=== PATIENT | male | born 1960 | race Hispanic/Latino ===

== ENCOUNTER 2017-07-11 11:48 | Inpatient (IN) | payer MEDICARE ==
[2017-07-11 12:04] VITALS: BMI 29.2
--- NOTE | 2017-07-11 12:35 | C.PDOC ---
History Of Present Illness 56 y/o male presents to emergency department status post outpatient bilateral lower extremity ultrasound which showed (+) left lower extremity DVT. Patient was sent by Dr. Ryan Meyers for admission. Patient c/o bilateral lower extremity pain "for a while", noting right greater than left. Otherwise, denies fever, chills, dizziness, headache, chest pain, SOB, nausea, vomiting, new weakness or numbness, trauma, or other associated symptoms. Time Seen by Provider: 07/11/17 12:29 Chief Complaint (Nursing): Abnormal Skin Integrity History Per: Patient History/Exam Limitations: no limitations Onset/Duration Of Symptoms: Days Current Symptoms Are (Timing): Still Present Location Of Injury: Left: Leg Quality Of Symptoms: Painful Recent travel outside of the [place]: No Past Medical History Reviewed: Historical Data, Nursing Documentation, Vital Signs Vital Signs: Last Vital Signs Temp 98.4 F 07/11/17 17:28 Pulse 86 07/11/17 17:28 Resp 18 07/11/17 12:05 BP 102/66 07/11/17 17:28 Pulse Ox 96 07/11/17 17:28 - Medical History PMH: HTN Family History: States: Unknown Family Hx - Social History Hx Alcohol Use: Yes Hx Substance Use: No - Immunization History Hx Tetanus Toxoid Vaccination: No Hx Influenza Vaccination: No Hx Pneumococcal Vaccination: No Review Of Systems Except As Marked, All Systems Reviewed And Found Negative. Constitutional: Negative for: Fever, Chills Cardiovascular: Negative for: Chest Pain, Palpitations, Edema, Light Headedness Respiratory: Negative for: Cough, Shortness of Breath, Wheezing Gastrointestinal: Negative for: Nausea, Vomiting, Abdominal Pain Musculoskeletal: Positive for: Leg Pain Skin: Negative for: Rash Neurological: Negative for: Weakness, Numbness, Headache, Dizziness Physical Exam - Physical Exam Appears: Non-toxic, No Acute Distress Skin: Normal Color, Warm, Dry Head: Atraumatic, Normacephalic Oral Mucosa: Moist Chest: Symmetrical Cardiovascular: Rhythm Regular Respiratory: Normal Breath Sounds, No Accessory Muscle Use, No Rales, No Rhonchi , No Wheezing Gastrointestinal/Abdominal: Soft, No Tenderness, No Guarding, No Rebound Back: Normal Inspection Extremity: Normal ROM, No Pedal Edema, Calf Tenderness (bilateral, R > L), Capillary Refill (< 2 sec.) Extremity: Bilateral: Normal Color And Temperature Pulses: Left Dorsalis Pedis: Normal, Right Dorsalis Pedis: Normal Neurological/Psych: Oriented x3, Normal Speech, Normal Cognition, Normal Motor, Normal Sensation ED Course And Treatment - Laboratory Results Result Diagrams: 07/11/17 12:46 07/11/17 12:46 Lab Interpretation: No Acute Changes ECG: Interpreted By Me, Viewed By Me O2 Sat by Pulse Oximetry: 97 (RA) Pulse Ox Interpretation: Normal - Other Rad CXR X-Ray: Read By Radiologist Interpretation: MPRESSION: Biapical pleural thickening. Single lead left- sided AICD. - CT Scan/US Doppler US Other Rad Studies (CT/US): Radiology Report Reviewed CT/US Interpretation: (+) DVT of common femoral, posterial tibial and peroneal veins. Progress Note: Case discussed with Dr. Meyers in the ER. EKG, bloodwork, venous duplex scan ordered and reviewed. Disposition - Disposition Disposition: HOSPITALIZED Disposition Time: 14:09 Condition: STABLE - Clinical Impression Clinical Impression: DVT (deep venous thrombosis) - PA / [employer] / Resident Statement MD/DO has reviewed & agrees with the documentation as recorded. - Scribe Statement The provider has reviewed the documentation as recorded by the Rosalieibcesar Patel All medical record entries made by the Parish were at my direction and personally dictated by me. I have reviewed the chart and agree that the record accurately reflects my personal performance of the history, physical exam, medical decision making, and the department course for this patient. I have also personally directed, reviewed, and agree with the discharge instructions and disposition.
[2017-07-11 12:53] LABS: BASO # 0.1 K/uL (0.0-0.2); BASO % 1.3 % (0.0-2.0); EOS # 0.1 K/uL (0.0-0.7); EOS % 1.1 % (0.0-4.0); HEMATOCRIT 47.2 % (35.0-51.0); LYMPH # 1.9 K/uL (1.0-4.3); LYMPH % 20.5 % (20.0-40.0); MEAN CELL VOLUME 91.9 fL (80.0-94.0); MEAN CORPUSCULAR HEMOGLOBIN 32.3 pg (27.0-31.0); MEAN CORPUSCULAR HGB CONC 35.1 g/dL (33.0-37.0); MEAN PLATELET VOLUME 7.3 fL (7.2-11.7); MONO # 0.5 K/uL (0.0-0.8); MONO % 5.8 % (0.0-10.0); RED CELL DISTRIBUTION WIDTH 14.2 % (11.5-14.5)
[2017-07-11 13:02] LABS: CHLORIDE 97 mmol/L (98-107); SODIUM 139 mmol/L (132-148)
--- NOTE | 2017-07-11 13:02 | RAD ---
HISTORY: SOB COMPARISON: Chest x-ray performed 05/28/14 TECHNIQUE: Chest PA and lateral FINDINGS: LUNGS: Biapical pleural thickening. No focal consolidation. Please note that chest x-ray has limited sensitivity for the detection of pulmonary masses. PLEURA: No significant pleural effusion identified. No definite pneumothorax . CARDIOVASCULAR: Single lead left-sided AICD. Heart size appears top normal. OSSEOUS STRUCTURES: Degenerative changes. VISUALIZED UPPER ABDOMEN: Unremarkable. OTHER FINDINGS: None. IMPRESSION: Biapical pleural thickening. Single lead left-sided AICD.
[2017-07-11 13:04] LABS: AST/SGOT 34 U/L (17-59); BILIRUBIN,TOTAL 0.7 mg/dL (0.2-1.3); CARBON DIOXIDE 25 mmol/L (22-30); GFR AFRICAN-AMERICAN > 60; POTASSIUM 4.1 mmol/L (3.6-5.2)
[2017-07-11 13:05] LABS: ALB/GLOB RATIO 1.3 (1.0-2.1); ALKALINE PHOSPHATASE 64 U/L (38-126); ALT/SGPT 41 U/L (21-72); BLOOD UREA NITROGEN 16 mg/dL (9-20); GLUCOSE,RANDOM 118 mg/dL (75-110); TOTAL PROTEIN 7.6 g/dL (6.3-8.3)
[2017-07-11] MEDS ORDERED: Heparin25000 units/250ml 1/2NS 25,000 UNITS/250 ML BAG IV ONE (14:02)
[2017-07-11 15:37] LABS: RBC URINE < 1 /hpf (0-3); URINE BILIRUBIN NEGATIVE (NEGATIVE); URINE BLOOD NEGATIVE (NEGATIVE); URINE COLOR Yellow (YELLOW); URINE GLUCOSE (UA) NORMAL (Normal); URINE KETONE NEGATIVE (NEGATIVE); URINE LEUKOCYTE ESTERASE NEG Leu/uL (Negative); URINE PROTEIN NEGATIVE (NEGATIVE); URINE UROBILINOGEN NORMAL mg/dL (0.2-1.0); WBC URINE < 1 /hpf (0-5)
--- NOTE | 2017-07-11 21:13 | CP.PCM.HP ---
History of Present Illness - History of Present Illness History of Present Illness: This is a 56 y/o male with known history of Ischemic Cardiomyopathy, S/P stent to LAD in 2009 after an MS in 2009, S/P placement of AICD a few months ago who was advised to be admitted because of pain in the lower ext. 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 He went to see his orthopedist and he was advised to go for venous duplex scan which was done earlier today. The test turned out + for DVT on the L and hence he was sent to the ER and subsequently admitted. Patient denies any chest pain or shortness of breath, no palpitations or dizziness. Present on Admission - Present on Admission Any Indicators Present on Admission: No Review of Systems - Review of Systems All systems: reviewed and no additional remarkable complaints except - Constitutional Constitutional: Fatigue - EENT Eyes: As Per HPI Ears: As Per HPI Nose/Mouth/Throat: As Per HPI - Cardiovascular Cardiovascular: Chest Pain with Activity, Dyspnea on Exertion - Respiratory Respiratory: Dyspnea on Exertion - Gastrointestinal Gastrointestinal: As Per HPI - Musculoskeletal Musculoskeletal: Arthralgias, Muscle Cramps, Muscle Weakness, Myalgias - Psychiatric Psychiatric: As Per HPI Past Patient History - Past Social History Smoking Status: Current Some Days Smoker Home Situation {Lives}: With Family - CARDIAC Hx Cardiac Disorders: Yes Hx Angina: Yes Hx Cardia Arrhythmia: Yes Hx Circulatory Problems: Yes Hx Congestive Heart Failure: Yes Hx Heart Attack: Yes Hx Heart Murmur: Yes Hx Hypercholesterolemia: Yes Hx Hypertension: Yes Hx Internal Defibrillator: Yes Hx Peripheral Edema: Yes Hx Peripheral Vascular Disease: Yes - PULMONARY Hx Respiratory Disorders: Yes Hx Emphysema: Yes Hx Respiratory Tract Infection: Yes - NEUROLOGICAL Hx Neurological Disorder: No - HEENT Hx HEENT Problems: No - RENAL Hx Chronic Kidney Disease: No - HEMATOLOGICAL/ONCOLOGICAL Hx Blood Disorders: No - MUSCULOSKELETAL/RHEUMATOLOGICAL Hx Musculoskeletal Disorders: No - GASTROINTESTINAL Hx Gastrointestinal Disorders: No Hx Diverticulitis: No Hx Fatty Liver Disease: No - PSYCHIATRIC Hx Psychophysiologic Disorder: Yes Hx Bipolar Disorder: Yes Hx Substance Use: No Meds Allergies/Adverse Reactions: Allergies Allergy/AdvReac Type Severity Reaction Status Date / Time No Known Allergies Allergy Verified 07/11/17 12:02 Physical Exam - Constitutional Appears: No Acute Distress - Head Exam Head Exam: NORMAL INSPECTION - Eye Exam Eye Exam: Normal appearance - ENT Exam ENT Exam: Normal Exam - Neck Exam Neck exam: Positive for: Normal Inspection - Respiratory Exam Respiratory Exam: Clear to Auscultation Bilateral, NORMAL BREATHING PATTERN - Cardiovascular Exam Cardiovascular Exam: REGULAR RHYTHM, +S1, +S2 - GI/Abdominal Exam GI & Abdominal Exam: Normal Bowel Sounds, Soft - Rectal Exam Rectal Exam: Deferred - Extremities Exam Additional comments: calf muscle tenderness R>L, pedal pulses diminished bilaterally. - Neurological Exam Neurological exam: Alert, Oriented x3 - Skin Skin Exam: Dry, Intact, Normal Color, Warm Results - Vital Signs Recent Vital Signs: Last Vital Signs Temp 97.9 F 07/11/17 20:38 Pulse 60 07/11/17 20:38 Resp 18 07/11/17 20:38 BP 150/93 H 07/11/17 20:38 Pulse Ox 96 07/11/17 20:38 - Labs Result Diagrams: 07/11/17 12:46 07/12/17 03:18 Labs: Laboratory Results - last 24 hr 07/11/17 07/11/17 07/11/17 12:46 12:46 12:46 WBC 9.0 RBC 5.13 Hgb 16.6 Hct 47.2 MCV 91.9 MCH 32.3 H MCHC 35.1 RDW 14.2 Plt Count 246 MPV 7.3 Neut % (Auto) 71.3 Lymph % (Auto) 20.5 [place] % (Auto) 5.8 Eos % (Auto) 1.1 Baso % (Auto) 1.3 Neut # 6.5 Lymph # 1.9 [place] # 0.5 Eos # 0.1 Baso # 0.1 PT 11.5 INR 1.0 APTT 29 Sodium 139 Potassium 4.1 Chloride 97 L Carbon Dioxide 25 Anion Gap 22 H BUN 16 Creatinine 0.8 Est GFR ( Amer) > 60 Est GFR (Non-Af Amer) > 60 Random Glucose 118 H Calcium 9.0 Total Bilirubin 0.7 AST 34 ALT 41 Alkaline Phosphatase 64 Troponin I < 0.0120 Total Protein 7.6 Albumin 4.2 Globulin 3.3 Albumin/Globulin Ratio 1.3 Urine Color Urine Clarity Urine pH Ur Specific [place] Urine Protein Urine Glucose (UA) Urine Ketones Urine Blood Urine Nitrate Urine Bilirubin Urine Urobilinogen Ur Leukocyte Esterase Urine WBC (Auto) Urine RBC (Auto) Ur Squamous Epith Cells 07/11/17 15:17 WBC RBC Hgb Hct MCV MCH MCHC RDW Plt Count MPV Neut % (Auto) Lymph % (Auto) [place] % (Auto) Eos % (Auto) Baso % (Auto) Neut # Lymph # [place] # Eos # Baso # PT INR APTT Sodium Potassium Chloride Carbon Dioxide Anion Gap BUN Creatinine Est GFR ( Amer) Est GFR (Non-Af Amer) Random Glucose Calcium Total Bilirubin AST ALT Alkaline Phosphatase Troponin I Total Protein Albumin Globulin Albumin/Globulin Ratio Urine Color Yellow Urine Clarity Clear Urine pH 6.0 Ur Specific [place] 1.011 Urine Protein Negative Urine Glucose (UA) Normal Urine Ketones Negative Urine Blood Negative Urine Nitrate Negative Urine Bilirubin Negative Urine Urobilinogen Normal Ur Leukocyte Esterase Neg Urine WBC (Auto) < 1 Urine RBC (Auto) < 1 Ur Squamous Epith Cells < 1 Assessment & Plan (1) DVT (deep venous thrombosis) Status: Acute Priority: High Comment: + venous duplex scan of L lower extremity. Currently on heparin drip. To be shifted to oral anticoagulant once fully anticoagulated. (2) Ischemic cardiomyopathy Status: Chronic Priority: Medium Comment: Patient on beta barron and femi inhibitor. Also had AICD insertion a few months ago. Stable at this time. (3) History of bipolar disorder Status: Chronic Priority: Low Decision To Admit - Pt Status Changed To: Hospital Disposition Of: Inpatient - Admit Certification Admit to Inpatient:: After my assessment, the patient will require hospitalization for at least two midnights. This is because of the severity of symptoms shown, intensity of services needed, and/or the medical risk in this patient being treated as an outpatient. - InPatient: Physician Admission Certification:: After my assessment, the patient will require hospitalization for at least two midnights. This is because of the severity of symptoms shown, intensity of services needed, and/or the medical risk in this patient being treated as an outpatient. - . Bed Request Type: Regular Admitting Physician: Linn Harrison
[2017-07-12] MEDS ORDERED: Tramadol 25 mg PO ONE (00:29)
[2017-07-12 03:29] LABS: CHLORIDE 100 mmol/L (98-107)
[2017-07-12 03:30] LABS: POTASSIUM 4.1 mmol/L (3.6-5.2); SODIUM 139 mmol/L (132-148)
[2017-07-12 03:32] LABS: GFR AFRICAN-AMERICAN > 60
[2017-07-12 03:33] LABS: BLOOD UREA NITROGEN 16 mg/dL (9-20); CALCIUM 9.2 mg/dl (8.6-10.4); CARBON DIOXIDE 28 mmol/L (22-30); GLUCOSE,RANDOM 87 mg/dL (75-110)
[2017-07-12] MEDS ORDERED: Heparin25000 units/250ml 1/2NS 25,000 UNITS/250 ML BAG IV PRN ×5 (05:15→23:39)
[2017-07-12] MEDS: Metoprolol Succinate 50 mg XL Tab PO SCH (09:53)
[2017-07-12] MEDS ORDERED: Pneumococcal 23-Valent Vaccine SC ONE (10:00)
[2017-07-12] MEDS ORDERED: Influenza Vaccine 60 mcg/0.5 mL SYR (4YR UP) IM ONE (10:00)
--- NOTE | 2017-07-12 14:40 | VASCLAB ---
PROCEDURE: Left Lower Extremity Venous Duplex Exam. HISTORY: Left leg pain PRIORS: None. TECHNIQUE: Left common femoral, femoral, popliteal and posterior tibial, peroneal and great saphenous veins were evaluated. Flow was assessed with color Doppler, compressibility, assessment of phasic flow and augmentation response. Report prepared by JOHN PAUL Palacios, RVT FINDINGS: LEFT: 1. Common Femoral Vein: 1.1. Compressibility - Fully compressible: Thrombus - None : Flow - Phasic: Augmentation -Normal: Reflux - None. 2. Femoral Vein: 2.1. Compressibility - Partial: Thrombus - Chronic: Flow - Absent : Augmentation -None: Reflux - None. 3. Popliteal Vein: 3.1. Compressibility - Partial: Thrombus - Chronic: Flow - Reduced : Augmentation -None: Reflux - None. 4. Posterior Tibial Vein: 4.1. Compressibility - Fully compressible: Thrombus - None: Flow - Phasic: Augmentation -Normal: Reflux - None. 5. Peroneal Vein: 5.1. Compressibility - Fully compressible: Thrombus - None: Flow - Phasic: Augmentation -Normal: Reflux - None. 6. Great Saphenous Vein: 6.1. Compressibility - Fully compressible: Thrombus - None: Flow - Phasic: Augmentation - Normal: Reflux - None. OTHER FINDINGS: DAVID Bishop notified about the findings. 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 Normal venous flow noted in the right common femoral vein.
--- NOTE | 2017-07-12 16:35 | NM ---
COMPARISON: July 11, 2017. Two-view chest TECHNIQUE: 7.2 mCi technetium 99-m Xe-133 Gas. 3.2 mCI technetium 99-m MAA administered intravenously. FINDINGS: VENTILATION COMPONENT: Photon deficient area corresponds to the pacemaker battery pack overlying the left lung PERFUSION COMPONENT: Heterogeneous distribution of radionuclide. No geographic, segmental, lobar abnormalities apparent on the present examination. Incidental finding(s): Photon deficient area corresponds to the battery pack as part of the unipolar pacemaker IMPRESSION: Low probability ventilation perfusion scan for pulmonary embolism.
--- NOTE | 2017-07-12 16:47 | CP.PCM.PN ---
Subjective - Date & Time of Evaluation Date of Evaluation: 07/12/17 Time of Evaluation: 16:45 - Subjective Subjective: -patient complaining of pain over the R leg. -venous duplex scan report noted -V/Q perfusion scan- low probability of PE -Will continue heparin and shift to warfarin -continue rest of Rx Objective - Vital Signs/Intake and Output Vital Signs (last 24 hours): Temp Pulse Resp BP Pulse Ox 98.4 F 61 20 105/68 98 07/12/17 16:00 07/12/17 16:00 07/12/17 16:00 07/12/17 16:00 07/12/17 16:00 Intake and Output: 07/12/17 07/12/17 06:59 18:59 Intake Total 660.4 236.8 Balance 660.4 236.8 - Medications Medications: Current Medications Acetaminophen (Tylenol 325mg Tab) 650 mg PO TID PRN PRN Reason: Pain, moderate (4-7) Fluoxetine HCl (Prozac) [address] [facility] Heparin Sodium/Sodium Chloride (Heparin 44591 Units/250ml 1/2 Normal Saline) 25 ,000 units in 250 mls @ 14.696 mls/hr IV .Q17H1M PRN; Protocol; 15 UNITS/KG/HR PRN Reason: PROTOCOL Last Admin: 07/12/17 05:45 Dose: 15 units/kg/hr, 14.696 mls/hr Lisinopril (Zestril) 2.[address] [facility] Last Admin: 07/12/17 09:54 Dose: 2.5 mg Metoprolol Succinate (Toprol Xl) [address] [facility] Last Admin: 07/12/17 09:53 Dose: 50 mg Mirtazapine (Remeron) 7.[address] [facility] Oxycodone/Acetaminophen (Percocet 5/325 Mg Tab) 1 tab PO Q6H PRN PRN Reason: Pain, severe (8-10) Stop: 07/15/17 16:41 Quetiapine Fumarate (Seroquel) [address] [facility] Risperidone (Risperdal Tab) [address] [facility] Rosuvastatin Calcium (Crestor) [address] [facility] Last Admin: 07/11/17 22:01 Dose: 20 mg - Labs Labs: 07/11/17 12:46 07/12/17 03:18 PT 11.6 SECONDS (9.7-12.2) 07/12/17 11:45 INR 1.0 07/12/17 11:45 APTT 95 SECONDS (21-34) H D 07/12/17 11:45 - Constitutional Appears: No Acute Distress - Eye Exam Eye Exam: Normal appearance - ENT Exam ENT Exam: Normal Exam - Neck Exam Neck Exam: Full ROM - Respiratory Exam Respiratory Exam: Clear to Ausculation Bilateral, NORMAL BREATHING PATTERN - Cardiovascular Exam Cardiovascular Exam: REGULAR RHYTHM, RRR, +S1, +S2 - Extremities Exam Extremities Exam: Calf Tenderness - Neurological Exam Neurological Exam: Alert, Oriented x3 - Skin Skin Exam: Dry, Intact, Warm Assessment and Plan (1) DVT (deep venous thrombosis) Status: Acute (2) Ischemic cardiomyopathy Status: Chronic (3) History of bipolar disorder Status: Chronic
[2017-07-12] MEDS: Oxycodone/Acetaminophen 5/325 mg Tab PO PRN (18:09)
[2017-07-12] MEDS ORDERED: MIRTAZAPINE 7.5 MG PO SCH (22:00)
[2017-07-13] MEDS: Oxycodone/Acetaminophen 5/325 mg Tab PO PRN ×4 (00:22→22:37)
[2017-07-13 07:33] LABS: INR 1.1
[2017-07-13] MEDS: Metoprolol Succinate 50 mg XL Tab PO SCH (09:57)
--- NOTE | 2017-07-13 12:25 | CP.PCM.PN ---
Subjective - Date & Time of Evaluation Date of Evaluation: 07/13/17 Time of Evaluation: 12:20 - Subjective Subjective: -Patient awake, alert oriented -complains of on and off pain over the R leg -on heparin while warfarin dose is being stabilized under PT/PTT/INR monitoring Objective - Vital Signs/Intake and Output Vital Signs (last 24 hours): Temp Pulse Resp BP Pulse Ox 98.5 F 60 20 109/70 95 07/13/17 07:50 07/13/17 07:50 07/13/17 07:50 07/13/17 07:50 07/13/17 07:50 Intake and Output: 07/13/17 07/13/17 06:59 18:59 Intake Total 469.6 Balance 469.6 - Medications Medications: Current Medications Acetaminophen (Tylenol 325mg Tab) 650 mg PO TID PRN PRN Reason: Pain, moderate (4-7) Fluoxetine HCl (Prozac) 60 mg PO DAILY [facility] Last Admin: 07/13/17 09:57 Dose: 60 mg Heparin Sodium/Sodium Chloride (Heparin 34390 Units/250ml 1/2 Normal Saline) 25 ,000 units in 250 mls @ 13.717 mls/hr IV .[id number] PRN; Protocol; 14 UNITS/KG/HR PRN Reason: PROTOCOL Last Admin: 07/12/17 23:47 Dose: 14 units/kg/hr, 13.717 mls/hr Lisinopril (Zestril) 2.5 mg PO DAILY [facility] Last Admin: 07/13/17 09:58 Dose: 2.5 mg Metoprolol Succinate (Toprol Xl) 50 mg PO DAILY [facility] Last Admin: 07/13/17 09:57 Dose: 50 mg Mirtazapine (Remeron) 7.5 mg PO HS [facility] Last Admin: 07/12/17 22:44 Dose: 7.5 mg Oxycodone/Acetaminophen (Percocet 5/325 Mg Tab) 1 tab PO Q6H PRN PRN Reason: Pain, severe (8-10) Stop: 07/15/17 16:41 Last Admin: 07/13/17 10:02 Dose: 1 tab Quetiapine Fumarate (Seroquel) 25 mg PO Q24H [facility] Last Admin: 07/12/17 18:00 Dose: 25 mg Risperidone (Risperdal Tab) 1 mg PO HS [facility] Last Admin: 07/12/17 22:45 Dose: 1 mg Rosuvastatin Calcium (Crestor) 20 mg PO HS [facility] Last Admin: 07/12/17 22:45 Dose: 20 mg - Labs Labs: 07/11/17 12:46 07/12/17 03:18 PT 12.8 SECONDS (9.7-12.2) H 07/13/17 07:14 INR 1.1 07/13/17 07:14 APTT 99 SECONDS (21-34) H D 07/13/17 07:14 - Constitutional Appears: No Acute Distress - Head Exam Head Exam: NORMAL INSPECTION - Eye Exam Eye Exam: Normal appearance - ENT Exam ENT Exam: Mucous Membranes Moist, Normal Exam - Neck Exam Neck Exam: Full ROM - Respiratory Exam Respiratory Exam: Clear to Ausculation Bilateral, NORMAL BREATHING PATTERN - Cardiovascular Exam Cardiovascular Exam: REGULAR RHYTHM, RRR, +S1, +S2 - GI/Abdominal Exam GI & Abdominal Exam: Soft, Normal Bowel Sounds - Extremities Exam Extremities Exam: Full ROM, Normal Capillary Refill Additional comments: -pedal pulses felt bilaterally - - Back Exam Back Exam: paraspinal tenderness, tenderness - Neurological Exam Neurological Exam: Alert, Awake, Oriented x3 - Psychiatric Exam Psychiatric exam: Normal Affect - Skin Skin Exam: Normal Color, Warm Assessment and Plan (1) DVT (deep venous thrombosis) Status: Acute (2) Ischemic cardiomyopathy Status: Chronic (3) History of bipolar disorder Status: Chronic (4) Chronic radicular pain of lower back Status: Chronic
[2017-07-13 14:45] LABS: INR 1.3
[2017-07-13] MEDS ORDERED: Heparin25000 units/250ml 1/2NS 25,000 UNITS/250 ML BAG IV PRN (15:00)
--- NOTE | 2017-07-13 17:37 | CT ---
PROCEDURE: CT Lumbar Spine without contrast HISTORY: lumbar radiculopathy COMPARISON: None. TECHNIQUE: Axial computed tomography images were obtained of the lumbar spine without the use of intravenous contrast. Coronal and sagittal reformatted images were created and reviewed. Radiation dose: Total exam DLP = 1481.22 mGy-cm. This CT exam was performed using one or more of the following dose reduction techniques: Automated exposure control, adjustment of the mA and/or kV according to patient size, and/or use of iterative reconstruction technique. FINDINGS: VERTEBRAE: There is mild straightening of the upper lumbar curvature with no spondylolisthesis or fracture appreciable definitively. Advanced multilevel degenerative disease appreciated seen worst at L2-3 and L5-S1 where there are vacuum disc changes accompanying disc height loss. Diffuse moderate multilevel spondylosis is appreciate throughout the lumbar spine. DISCS/SPINAL CANAL/NEURAL FORAMINA: L1-2: Unremarkable. L2-3: A disc osteophyte appears moderate but generalized and facet joint arthropathy appears mild with mild narrowing of the of lateral recesses appreciated although the generalized central canal remains widely patent. No significant neural foraminal stenosis. L3-4: A generalized disc osteophyte complex is appreciated combining with facet arthropathy to cause mild central canal stenosis concentrated at the lateral recesses. Mild bilateral neural foraminal stenosis appreciated as well. L4-5: A moderate central canal stenosis degenerative due to to disc bulging and moderate to severe facet arthropathy. Moderate bilateral neural foraminal stenosis identified symmetrically. L5-S1: Facet arthropathy and limited disc osteophyte complex result in asymmetric moderate to severe left and moderate right neural foraminal stenosis with no central canal stenosis evident. No gross disc herniation is appreciable throughout the exam however MRI is more sensitive. PARASPINAL SOFT TISSUES: Prevertebral paraspinal soft tissues appear diffusely unremarkable although bilateral intrarenal calculi are incidentally noted which appear nonobstructive as captured. Trace gas or submucosal fat is seen in the nondependent urinary bladder wall oral abutting the mucosa and may reflect reflect acute or chronic cystitis. Clinically correlate. OTHER FINDINGS: None. IMPRESSION: Degenerative central canal stenoses are mild at L3-4 and moderate L4-5 with multilevel variable neural foraminal stenoses seen at the mid to inferior lumbar spine. No gross disc herniation. MRI is more sensitive for disc evaluation can be performed if clinically warranted.
[2017-07-13 22:27] LABS: INR 1.5
[2017-07-14 08:10] LABS: INR 1.9
[2017-07-14] MEDS: Metoprolol Succinate 50 mg XL Tab PO SCH (10:09)
[2017-07-14] MEDS: Oxycodone/Acetaminophen 5/325 mg Tab PO PRN ×2 (11:17→17:20)
--- NOTE | 2017-07-14 17:04 | CP.PCM.PN ---
Subjective - Date & Time of Evaluation Date of Evaluation: 07/14/17 Time of Evaluation: 16:55 - Subjective Subjective: -Patient lying down on bed -complains of pain on the R leg -no calf tenderness on the L leg -PT/PTT/INR noted- therapeutic PTT, near therapeutic INR -Will give lower Warfarin dose today and check PT/INR in am. -For possible discharge tomorrow. Objective - Vital Signs/Intake and Output Vital Signs (last 24 hours): Temp Pulse Resp BP Pulse Ox 98.1 F 52 L 20 96/59 L 95 07/14/17 16:00 07/14/17 16:00 07/14/17 16:00 07/14/17 16:00 07/14/17 16:00 Intake and Output: 07/14/17 07/14/17 06:59 18:59 Intake Total 726.0 444 Balance 726.0 444 - Medications Medications: Current Medications Acetaminophen (Tylenol 325mg Tab) 650 mg PO TID PRN PRN Reason: Pain, moderate (4-7) Fluoxetine HCl (Prozac) 60 mg PO DAILY [facility] Last Admin: 07/14/17 10:09 Dose: 60 mg Lisinopril (Zestril) 2.5 mg PO DAILY [facility] Last Admin: 07/14/17 10:10 Dose: 2.5 mg Metoprolol Succinate (Toprol Xl) 50 mg PO DAILY [facility] Last Admin: 07/14/17 10:09 Dose: 50 mg Mirtazapine (Remeron) 7.5 mg PO [facility] Last Admin: 07/13/17 22:36 Dose: 7.5 mg Oxycodone/Acetaminophen (Percocet 5/325 Mg Tab) 1 tab PO Q6H PRN PRN Reason: Pain, severe (8-10) Stop: 07/15/17 16:41 Last Admin: 07/14/17 11:17 Dose: 1 tab Quetiapine Fumarate (Seroquel) 25 mg PO Q24H [facility] Last Admin: 07/13/17 17:25 Dose: 25 mg Risperidone (Risperdal Tab) 1 mg PO [facility] Last Admin: 07/13/17 22:37 Dose: 1 mg Rosuvastatin Calcium (Crestor) 20 mg PO [facility] Last Admin: 07/13/17 22:36 Dose: 20 mg Warfarin Sodium (Coumadin) 4 mg PO 1800 [place] Stop: 07/14/17 18:01 - Labs Labs: 07/11/17 12:46 07/12/17 03:18 PT 22.1 SECONDS (9.7-12.2) H D 07/14/17 07:56 INR 1.9 07/14/17 07:56 APTT 69 SECONDS (21-34) H D 07/14/17 07:56 - Constitutional Appears: No Acute Distress - Eye Exam Eye Exam: Normal appearance - Neck Exam Neck Exam: Normal Inspection - Respiratory Exam Respiratory Exam: Clear to Ausculation Bilateral, NORMAL BREATHING PATTERN - Cardiovascular Exam Cardiovascular Exam: REGULAR RHYTHM, +S1, +S2 - GI/Abdominal Exam GI & Abdominal Exam: Soft, Normal Bowel Sounds - Extremities Exam Extremities Exam: Normal Inspection - Skin Skin Exam: Normal Color, Warm Assessment and Plan (1) DVT (deep venous thrombosis) Status: Acute (2) Ischemic cardiomyopathy Status: Chronic (3) History of bipolar disorder Status: Chronic
[2017-07-15 06:42] LABS: INR 2.2
[2017-07-15 08:15] VITALS: BP 105/69; PULSE 60; RESP 21; TEMP 98.5; O2SAT 95
--- NOTE | 2017-07-15 10:00 | CP.PCM.DIS ---
Provider - Provider Date of Admission: 07/11/17 14:09 Attending physician: Linn Harrison MD Primary care physician: Olivia Harrison Time Spent in preparation of Discharge (in minutes): 30 Diagnosis - Discharge Diagnosis (1) DVT (deep venous thrombosis) Status: Chronic Priority: Medium Comment: Will keep on 2 mg Warfarin and monitor PT/INR outpatient. Repeat PT/ INR in 3 days and office follow up in 1 week set (2) Ischemic cardiomyopathy Status: Chronic Priority: Medium Comment: Cardiac status stable at this time. Continue current meds. (3) History of bipolar disorder Status: Chronic Priority: Low Comment: Psychiatry follow up advised. (4) Chronic radicular pain of lower back Status: Chronic Priority: Medium Comment: Patient has been on Percocet intermittently in the past. Precaution advised and patient aware of addictive potential. controls and administers the medication. Patient also follows up with orthopedist for this chronic pain. Advised to follow up with hi on discharge. Hospital Course - Lab Results Lab Results: Most Recent Lab Values WBC 9.0 K/uL (4.8-10.8) 07/11/17 12:46 RBC 5.13 Mil/uL (4.40-5.90) 07/11/17 12:46 Hgb 16.6 g/dL (12.0-18.0) 07/11/17 12:46 Hct 47.2 % (35.0-51.0) 07/11/17 12:46 MCV 91.9 fL (80.0-94.0) 07/11/17 12:46 MCH 32.3 pg (27.0-31.0) H 07/11/17 12:46 MCHC 35.1 g/dL (33.0-37.0) 07/11/17 12:46 RDW 14.2 % (11.5-14.5) 07/11/17 12:46 Plt Count 246 K/uL (130-400) 07/11/17 12:46 MPV 7.3 fL (7.2-11.7) 07/11/17 12:46 Neut % (Auto) 71.3 % (50.0-75.0) 07/11/17 12:46 Lymph % (Auto) 20.5 % (20.0-40.0) 07/11/17 12:46 [place] % (Auto) 5.8 % (0.0-10.0) 07/11/17 12:46 Eos % (Auto) 1.1 % (0.0-4.0) 07/11/17 12:46 Baso % (Auto) 1.3 % (0.0-2.0) 07/11/17 12:46 Neut # 6.5 K/uL (1.8-7.0) 07/11/17 12:46 Lymph # 1.9 K/uL (1.0-4.3) 07/11/17 12:46 [place] # 0.5 K/uL (0.0-0.8) 07/11/17 12:46 Eos # 0.1 K/uL (0.0-0.7) 07/11/17 12:46 Baso # 0.1 K/uL (0.0-0.2) 07/11/17 12:46 PT 25.8 SECONDS (9.7-12.2) H 07/15/17 06:23 INR 2.2 07/15/17 06:23 APTT 37 SECONDS (21-34) H D 07/15/17 06:23 D-Dimer, Quantitative 534 ng/mlDDU (0-243) H 07/12/17 11:45 Sodium 139 mmol/L (132-148) 07/12/17 03:18 Potassium 4.1 mmol/L (3.6-5.2) 07/12/17 03:18 Chloride 100 mmol/L (98-107) 07/12/17 03:18 Carbon Dioxide 28 mmol/L (22-30) 07/12/17 03:18 Anion Gap 16 (10-20) 07/12/17 03:18 BUN 16 mg/dL (9-20) 07/12/17 03:18 Creatinine 0.9 mg/dL (0.8-1.5) 07/12/17 03:18 Est GFR ( Amer) > 60 07/12/17 03:18 Est GFR (Non-Af Amer) > 60 07/12/17 03:18 Random Glucose 87 mg/dL (75-110) 07/12/17 03:18 Calcium 9.2 mg/dl (8.6-10.4) 07/12/17 03:18 Total Bilirubin 0.7 mg/dL (0.2-1.3) 07/11/17 12:46 AST 34 U/L (17-59) 07/11/17 12:46 ALT 41 U/L (21-72) 07/11/17 12:46 Alkaline Phosphatase 64 U/L (38-126) 07/11/17 12:46 Troponin I < 0.0120 ng/mL (0.00-0.120) 07/11/17 12:46 NT-Pro-B Natriuret Pep 284 pg/mL (0-900) 07/12/17 11:45 Total Protein 7.6 g/dL (6.3-8.3) 07/11/17 12:46 Albumin 4.2 g/dL (3.5-5.0) 07/11/17 12:46 Globulin 3.3 gm/dL (2.2-3.9) 07/11/17 12:46 Albumin/Globulin Ratio 1.3 (1.0-2.1) 07/11/17 12:46 Urine Color Yellow (YELLOW) 07/11/17 15:17 Urine Clarity Clear (Clear) 07/11/17 15:17 Urine pH 6.0 (5.0-8.0) 07/11/17 15:17 Ur Specific [place] 1.011 (1.003-1.030) 07/11/17 15:17 Urine Protein Negative mg/dL (NEGATIVE) 07/11/17 15:17 Urine Glucose (UA) Normal mg/dL (Normal) 07/11/17 15:17 Urine Ketones Negative mg/dL (NEGATIVE) 07/11/17 15:17 Urine Blood Negative (NEGATIVE) 07/11/17 15:17 Urine Nitrate Negative (NEGATIVE) 07/11/17 15:17 Urine Bilirubin Negative (NEGATIVE) 07/11/17 15:17 Urine Urobilinogen Normal mg/dL (0.2-1.0) 07/11/17 15:17 Ur Leukocyte Esterase Neg [place]/uL (Negative) 07/11/17 15:17 Urine WBC (Auto) < 1 /hpf (0-5) 07/11/17 15:17 Urine RBC (Auto) < 1 /hpf (0-3) 07/11/17 15:17 Ur Squamous Epith Cells < 1 /hpf (0-5) 07/11/17 15:17 Discharge Exam - Head Exam Head Exam: NORMAL INSPECTION Discharge Plan - Follow Up Plan Condition: STABLE Disposition: HOME/ ROUTINE
[2017-07-15] MEDS: Metoprolol Succinate 50 mg XL Tab PO SCH (10:03)
--- NOTE | 2017-07-16 06:39 | CARD ---
APPROVED REPORT EKG Measurement Heart [id number] IL [id number] <Conclusion> Sinus bradycardia Otherwise normal ECG
== END 2017-07-15 13:05 | disposition home or self-care (01) | DRG 301 ==
LOC: C.ER 11:48 → C.9E 14:09 → C.3T 20:12
PROVIDERS: ADMIT Internal Medicine Cardiovascular Disease; ATTEND Internal Medicine Cardiovascular Disease
DX: I82.512 Chronic embolism and thrombosis of left femoral vein (principal); I11.0 Hypertensive heart disease with heart failure; I50.9 Heart failure, unspecified; I82.532 Chronic embolism and thrombosis of left popliteal vein; G89.29 Other chronic pain; I25.5 Ischemic cardiomyopathy; I73.9 Peripheral vascular disease, unspecified; J43.9 Emphysema, unspecified; I25.10 Atherosclerotic heart disease of native coronary artery without angina pectoris; M54.16 Radiculopathy, lumbar region; F31.9 Bipolar disorder, unspecified; E78.00 Pure hypercholesterolemia, unspecified; F17.210 Nicotine dependence, cigarettes, uncomplicated; I25.2 Old myocardial infarction; Z95.810 Presence of automatic (implantable) cardiac defibrillator; Z95.5 Presence of coronary angioplasty implant and graft

== ENCOUNTER 2017-09-18 09:15 | Inpatient (IN) | payer MEDICARE ==
[2017-09-18 09:15] VITALS: BMI 29.2
--- NOTE | 2017-09-18 09:30 | C.PDOC ---
History Of Present Illness history of CAD, ischemic cardiomyopathy S/P AICD, DVT Time Seen by Provider: 09/18/17 09:29 Chief Complaint (Nursing): Male Genitourinary Past Medical History - Medical History PMH: Bipolar Disorder, Cardia Arrhythmia, CHF, Emphysema, HTN, Hypercholesterolemia, Peripheral Edema Denies: Diverticulitis, Chronic Kidney Disease Family History: States: Unknown Family Hx - Social History Hx Alcohol Use: Yes Hx Substance Use: No - Immunization History Hx Tetanus Toxoid Vaccination: No Hx Influenza Vaccination: No Hx Pneumococcal Vaccination: No Progress - Data Reviewed Data Reviewed: Old records Disposition - Disposition Forms: [employer] (Hungarian)
[2017-09-18] MEDS ORDERED: Iohexol 240 (50 ml) PO STA (09:47)
[2017-09-18] MEDS ORDERED: Lactated Ringer's 1,000 ML IV STA (09:47)
--- NOTE | 2017-09-18 09:47 | C.PDOC ---
History Of Present Illness 56 year old male with a PMHx of CAD, Ischemic Cardiomyopathy, status post AICD DVT presents to the ED with complaints of new onset RLQ abdominal pain beginning this morning with associated nausea and vomiting. Patient describes pain as constant, localized, and sharp. Patient notes fecal and urinary urgency but has no output. Patient is on Eliquis, last dose was yesterday. Patient has been NPO since last night. Patient denies PSHx, fever, chills, or other associated symptoms. NEW ONSET RLQ PAIN SINCE THIS MORNING. CONSTANT LOCALIZED SHARP. +FECAL AND URINARY URGENCY BUT NO OUTPUT. +NV. PSH NEG. history of CAD, ischemic cardiomyopathy S/P AICD dvt. ON ELIQUIS LAST DOSE YESTERDAY. NPO SINCE LAST NIGHT EXAM MOD DIST NONTOXIC HEENT ANICTERIC MMM ABD +RLQ TEND MOD SOFT NO R/G NO CVAT REMAINDER NEG Time Seen by Provider: 09/18/17 09:29 Chief Complaint (Nursing): Male Genitourinary History Per: Patient History/Exam Limitations: no limitations Onset/Duration Of Symptoms: Hrs Current Symptoms Are (Timing): Still Present Location Of Pain/Discomfort: RUQ Radiation Of Pain To:: None Quality Of Discomfort: Sharp Associated Symptoms: Nausea, Vomiting. denies: Fever, Chills Exacerbating Factors: None Alleviating Factors: None Recent travel outside of the [place]: No Additional History Per: Prior Records Past Medical History Reviewed: Historical Data, Nursing Documentation, Vital Signs Vital Signs: Last Vital Signs Temp 97.5 F L 09/18/17 09:34 Pulse 60 09/18/17 14:03 Resp 17 09/18/17 14:03 BP 106/80 09/18/17 14:03 Pulse Ox 97 09/18/17 14:28 - Medical History PMH: Bipolar Disorder, Cardia Arrhythmia, CHF, Deep Vein Thrombosis (left leg), Emphysema, HTN, Hypercholesterolemia, Peripheral Edema Family History: States: Unknown Family Hx - Social History Hx Alcohol Use: Yes Hx Substance Use: No - Immunization History Hx Tetanus Toxoid Vaccination: Yes Hx Influenza Vaccination: Yes Hx Pneumococcal Vaccination: Yes Review Of Systems Constitutional: Negative for: Fever, Chills Cardiovascular: Negative for: Chest Pain Respiratory: Negative for: Shortness of Breath Gastrointestinal: Positive for: Nausea, Vomiting, Abdominal Pain Genitourinary: Positive for: Other (fecal and urinary urgency) Physical Exam - Physical Exam Appears: Non-toxic, In Acute Distress (patient appears to be in moderate distress) Skin: Warm, Dry, No Rash Head: Atraumatic, Normacephalic, No Tenderness Eye(s): bilateral: PERRL, EOMI, Other (anicteric) Oral Mucosa: Moist Neck: Supple Chest: Symmetrical, No Deformity Cardiovascular: Rhythm Regular, No Murmur Respiratory: No Rales, No Rhonchi, No Wheezing, Other (clear to auscultation bilaterally) Gastrointestinal/Abdominal: Soft, Tenderness (moderate RLQ tenderness ), No Distention, No Guarding, No Rebound Back: No CVA Tenderness Extremity: Normal ROM, No Tenderness Neurological/Psych: Oriented x3 ED Course And Treatment - Laboratory Results Result Diagrams: 09/18/17 09:57 09/18/17 09:57 O2 Sat by Pulse Oximetry: 97 (RA) Pulse Ox Interpretation: Normal Progress Note: Abdomen Pelvis CT, labs, and blood work were ordered. Patient was given Morphine, Zofran, and Lactated Ringer's Solution. Progress - Re-Evaluation Re-evaluation Note: 09/18/17 12:41 PERSIST HTN, PS HASNT TAKEN BP MEDS THIS MORNING CO RECUR PAIN. PENDING CT, UA 09/18/17 14:27 appears comfortable nad vss. D/W DR SCHILLING AWARE OF ER AND CT FINDINGS. REQUESTS DR ESCOBEDO CONSULT, DISPO PER VASCULAR 09/18/17 14:54 VSS NAD APPEARS COMFORTABLE. D/W DR ESCOBEDO WILL CONSULT. RECOMMENDS FURTHER EVAL OF DISSECTION. D/W PMD WILL ADMIT - Data Reviewed Data Reviewed: Lab, Diagnostic imaging, EKG, Old records Disposition Counseled Patient/Family Regarding: Studies Performed, Diagnosis, Need For Followup - Disposition Disposition: HOSPITALIZED Disposition Time: 14:54 Condition: STABLE Forms: [facility] (Kazakh) - POA Present On Arrival: Poor Glycemic Control - Clinical Impression Clinical Impression: Ureterolithiasis, Dissection of aorta, abdominal - Scribe Statement The provider has reviewed the documentation as recorded by the Scribe Kaity Zhang All medical record entries made by the Scribe were at my direction and personally dictated by me. I have reviewed the chart and agree that the record accurately reflects my personal performance of the history, physical exam, medical decision making, and the department course for this patient. I have also personally directed, reviewed, and agree with the discharge instructions and disposition. Decision To Admit - Pt Status Changed To: Hospital Disposition Of: Inpatient - Admit Certification Admit to Inpatient:: After my assessment, the patient will require hospitalization for at least two midnights. This is because of the severity of symptoms shown, intensity of services needed, and/or the medical risk in this patient being treated as an outpatient. - InPatient: Physician Admission Certification:: SEE NOTE - . Bed Request Type: Telemetry Admitting Physician: Linn Harrison Patient Diagnosis: Ureterolithiasis, Dissection of aorta, abdominal
[2017-09-18] MEDS ORDERED: Lactated Ringer's 1,000 ML ONE (10:02)
[2017-09-18] MEDS ORDERED: Iohexol 240 (50 ml) ONE (10:02)
[2017-09-18] MEDS ORDERED: Morphine 4 MG/ML VIAL ONE (10:02)
[2017-09-18 10:04] LABS: BASO # 0.1 K/uL (0.0-0.2); BASO % 0.5 % (0.0-2.0); EOS % 0.3 % (0.0-4.0); LYMPH # 1.4 K/uL (1.0-4.3); LYMPH % 10.1 % (20.0-40.0); MEAN CORPUSCULAR HEMOGLOBIN 31.3 pg (27.0-31.0); MEAN PLATELET VOLUME 6.8 fL (7.2-11.7); MONO # 0.7 K/uL (0.0-0.8); MONO % 5.2 % (0.0-10.0); NEUT # 11.4 K/uL (1.8-7.0); NEUT % 83.9 % (50.0-75.0); NRBC % 0.1 % (0.0-2.0); RBC 5.43 Mil/uL (4.40-5.90); RED CELL DISTRIBUTION WIDTH 14.4 % (11.5-14.5)
[2017-09-18 10:06] LABS: WHITE BLOOD COUNT 13.6 K/uL (4.8-10.8)
[2017-09-18 10:15] LABS: ALB/GLOB RATIO 1.4 (1.0-2.1); ALBUMIN 4.1 g/dL (3.5-5.0); ALT/SGPT 46 U/L (21-72); AST/SGOT 30 U/L (17-59); BLOOD UREA NITROGEN 27 mg/dL (9-20); CALCIUM 8.6 mg/dl (8.6-10.4); GFR AFRICAN-AMERICAN > 60; GFR NON-AFRICAN AMERICAN > 60; LIPASE 62 U/L (23-300)
[2017-09-18] MEDS ORDERED: Metoprolol 1 mg/ml Inj IVP ONE ×2 (12:24→12:29)
[2017-09-18] MEDS ORDERED: HYDROmorphone 0.5 mg/0.5 ml ISec IVP STA (12:40)
[2017-09-18] MEDS ORDERED: HYDROmorphone 0.5 mg/0.5 ml ISec ONE (12:44)
[2017-09-18 12:47] LABS: SQUAMOUS EPITHIAL 1 /hpf (0-5); URINE BILIRUBIN NEGATIVE (NEGATIVE); URINE BLOOD 3+ (NEGATIVE); URINE CALCIUM OXALATE CRYSTALS OCC /hpf (<OCC); URINE CLARITY Hazy (Clear); URINE COLOR Yellow (YELLOW); URINE GLUCOSE (UA) NORMAL (Normal); URINE LEUKOCYTE ESTERASE NEG Leu/uL (Negative); URINE NITRATE NEGATIVE (NEGATIVE); URINE PROTEIN 1+ mg/dL (NEGATIVE)
[2017-09-18] MEDS ORDERED: Iodixanol 320 MG/ML 100 ML BOTTLE IV ONE (13:15)
--- NOTE | 2017-09-18 14:17 | CT ---
PROCEDURE: CT Abdomen and Pelvis with and without intravenous contrast HISTORY: RLQ PAIN RO APPY VS RENAL STONE COMPARISON: None available TECHNIQUE: Axial images of the abdomen were obtained in the pre contrast, portal venous and delayed phases of enhancement. Coronal and sagittal reformats were generated and reviewed. Contrast dose: 100 mL Visipaque Radiation dose: Total exam DLP = 1897.32 mGy-cm. This CT exam was performed using one or more of the following dose reduction techniques: Automated exposure control, adjustment of the mA and/or kV according to patient size, and/or use of iterative reconstruction technique. FINDINGS: LOWER THORAX: No visible consolidation, pleural effusion, or pneumothorax. LIVER: Unremarkable. GALLBLADDER AND BILE DUCTS: Unremarkable. PANCREAS: Unremarkable. SPLEEN: Unremarkable. ADRENALS: Unremarkable. KIDNEYS AND URETERS: The kidneys enhance symmetrically. Right-sided hydronephrosis with multiple bilateral punctate renal calculi. Obstructing proximal right ureteral calculus measures approximately 8 mm. Perinephric stranding on the right. VASCULATURE: Appearance of the aorta as suggest infrarenal chronic dissection with extensive thrombus. No false lumen identified. No evidence of ulcerating plaque. Extensive thrombus extends into the proximal right common iliac artery. BOWEL: Stomach is nondistended. Lack of oral contrast limits evaluation for bowel pathology. Bowel loops appear within normal limits of caliber without evidence of obstruction. Moderate constipation. APPENDIX: The appendix appears within normal limits of caliber. No secondary signs of acute appendicitis. PERITONEUM: No significant free fluid. No definite free air. LYMPH NODES: No bulky adenopathy identified. BLADDER: Decompressed urinary bladder limits evaluation. REPRODUCTIVE: Unremarkable. BONES: Degenerative changes. OTHER FINDINGS: None. IMPRESSION: Right-sided perinephric stranding with mild hydronephrosis and obstructing proximal ureteral calculus. Additional nonobstructing bilateral renal calculi evident. Appearance of the aorta suggests infrarenal chronic dissection with extensive thrombus. No false lumen identified. No evidence of ulcerating plaque. Extensive thrombus extends into the proximal right common iliac artery. Moderate constipation. Additional findings as above.
[2017-09-18] MEDS: Dextrose 5%/0.45% NS 1,000 ML IV SCH (19:42)
--- NOTE | 2017-09-18 19:43 | CP.PCM.HP ---
History of Present Illness - History of Present Illness History of Present Illness: This is a 56y/o male with history of Ischemic Cardiomyopathy, CHF, S/P coronary stenting, S/P AICD, Bipolar Disorder and history of recent DVT who was brought to the ER because of severe right sided-abdominal pain going down to his R leg early this morning. Patient claims that he has been having back pain on and off for a few months now. He also claims that he has some urinary urgency but no dysuria or frequency. He also describes passing dark-colored urine over the past few days. In the ER, he was found to have hydronephrosis of the R kidney with multiple stones and chronic infrarenal aortic dissection hence he was admitted for further evaluation and management Present on Admission - Present on Admission Any Indicators Present on Admission: No Past Patient History - Past Medical History & Family History Past Medical History?: Yes - Past Social History Smoking Status: Heavy Smoker > 10 Cigarettes Daily - CARDIAC Hx Cardiac Disorders: Yes Hx Cardia Arrhythmia: Yes Hx Congestive Heart Failure: Yes Hx Heart Attack: Yes Hx Hypercholesterolemia: Yes Hx Hypertension: Yes Hx Internal Defibrillator: Yes Hx Peripheral Edema: Yes - PULMONARY Hx Emphysema: Yes - NEUROLOGICAL Hx Neurological Disorder: No - HEENT Hx HEENT Problems: No - RENAL Hx Chronic Kidney Disease: No - ENDOCRINE/METABOLIC Hx Endocrine Disorders: No - HEMATOLOGICAL/ONCOLOGICAL Hx Blood Disorders: No - MUSCULOSKELETAL/RHEUMATOLOGICAL Hx Musculoskeletal Disorders: No - GASTROINTESTINAL Hx Diverticulitis: No - PSYCHIATRIC Hx Bipolar Disorder: Yes Hx Substance Use: No - SURGICAL HISTORY Hx Surgeries: Yes Hx Cardiac Catheterization: Yes (Stent placed) Hx Coronary Stent: Yes Other/Comment: AICD placement. - ANESTHESIA Hx Anesthesia: Yes Hx Anesthesia Reactions: No Meds Allergies/Adverse Reactions: Allergies Allergy/AdvReac Type Severity Reaction Status Date / Time No Known Allergies Allergy Verified 07/11/17 12:02 Physical Exam - Constitutional Appears: No Acute Distress - Head Exam Head Exam: NORMAL INSPECTION - Eye Exam Eye Exam: Normal appearance - ENT Exam ENT Exam: Mucous Membranes Moist, Normal Exam - Respiratory Exam Respiratory Exam: Clear to Auscultation Bilateral, NORMAL BREATHING PATTERN - Cardiovascular Exam Cardiovascular Exam: REGULAR RHYTHM, RRR, +S1, +S2 - GI/Abdominal Exam GI & Abdominal Exam: Diminished Bowel Sounds, Normal Bowel Sounds, Soft - Extremities Exam Extremities exam: Positive for: normal inspection - Neurological Exam Neurological exam: Alert, Oriented x3 - Psychiatric Exam Psychiatric exam: Normal Affect, Normal Mood - Skin Skin Exam: Intact Results - Vital Signs Recent Vital Signs: Last Vital Signs Temp 97.5 F L 09/18/17 09:34 Pulse 82 09/18/17 18:40 Resp 19 09/18/17 18:40 BP 120/85 09/18/17 18:40 Pulse Ox 95 09/18/17 18:40 - Labs Result Diagrams: 09/19/17 07:41 09/19/17 07:41 Labs: Laboratory Results - last 24 hr 09/18/17 09/18/17 09/18/17 09:57 09:57 12:39 WBC 13.6 H D RBC 5.43 Hgb 17.0 Hct 50.0 MCV 92.0 MCH 31.3 H MCHC 34.0 RDW 14.4 Plt Count 205 MPV 6.8 L Neut % (Auto) 83.9 H Lymph % (Auto) 10.1 L [place] % (Auto) 5.2 Eos % (Auto) 0.3 Baso % (Auto) 0.5 Neut # 11.4 H Lymph # 1.4 [place] # 0.7 Eos # 0.0 Baso # 0.1 Sodium 137 Potassium 4.3 Chloride 100 Carbon Dioxide 29 Anion Gap 13 BUN 27 H Creatinine 1.1 Est GFR ( Amer) > 60 Est GFR (Non-Af Amer) > 60 Random Glucose 149 H Calcium 8.6 Total Bilirubin 0.7 AST 30 ALT 46 Alkaline Phosphatase 93 Total Protein 6.9 Albumin 4.1 Globulin 2.9 Albumin/Globulin Ratio 1.4 Lipase 62 Urine Color Yellow Urine Clarity Hazy Urine pH 6.0 Ur Specific [place] 1.025 Urine Protein 1+ H Urine Glucose (UA) Normal Urine Ketones Negative Urine Blood 3+ H Urine Nitrate Negative Urine Bilirubin Negative Urine Urobilinogen 2.0 Ur Leukocyte Esterase Neg Urine WBC (Auto) 5 Urine RBC (Auto) 99 H Ur Squamous Epith Cells 1 Calcium Oxalate Crystal Occ H Assessment & Plan (1) Dissection of aorta, abdominal Status: Acute Priority: High Comment: Findign noted on the CT Scan. Vascular consultation requested. Will need further evaluation for same. (2) Ureterolithiasis Status: Acute Priority: High Comment: Urology consultation also requested for further eval and mangement. Started on IV fluid infusion for now. (3) DVT (deep venous thrombosis) Status: Chronic Priority: Medium Comment: Will hold off Eliquis for now. (4) Ischemic cardiomyopathy Status: Chronic Priority: Medium Comment: Patient's heart condition well-compensated at this time. Will continue current meds. (5) History of bipolar disorder Status: Chronic Priority: Low Comment: Continue psychiatric meds. (6) Chronic radicular pain of lower back Status: Chronic Priority: Medium Comment: Stable at this time. Pain meds prn. Decision To Admit - Pt Status Changed To: Hospital Disposition Of: Inpatient - Admit Certification Admit to Inpatient:: After my assessment, the patient will require hospitalization for at least two midnights. This is because of the severity of symptoms shown, intensity of services needed, and/or the medical risk in this patient being treated as an outpatient. - InPatient: Physician Admission Certification:: After my assessment, the patient will require hospitalization for at least two midnights. This is because of the severity of symptoms shown, intensity of services needed, and/or the medical risk in this patient being treated as an outpatient. - . Bed Request Type: Telemetry Admitting Physician: Linn Harrison
--- NOTE | 2017-09-19 04:39 | CON ---
DATE: 09/18/2017 HISTORY OF PRESENT ILLNESS: The patient is 56-year-old man admitted to the hospital with back pain and found to have a kidney stone on the right side. Incidentally, it was discovered that he has, what was felt to be, a chronic aortic dissection involving the aorta and right iliac artery. PAST MEDICAL HISTORY: He has defibrillator in place and he had coronary stents placed in the past. He has a history of adult-onset diabetes. He . Hypertension. FAMILY HISTORY: Unremarkable for aneurysms or problems of this nature. No one else has the similar problem as system review mentioned. REVIEW OF SYSTEMS: His system review is obtained. He denied any other complaints, marking of course that he has a history of deep vein thrombosis in the right leg with some swelling in the leg that he has a history of coronary interventions, a history of defibrillator, and he has occasional frequency at night urinary. PHYSICAL EXAMINATION: VITAL SIGNS: Blood pressure is the same on both sides, 120/70. He has femoral pulses on the left side and posterior tibial pulse on the right side. He has no pulse including the right femoral pulse, but he has no signs of ischemia. IMPRESSION: The patient has aortic occlusion going to the right side. Whether this is an aortic dissection or occlusive disease, I still need to review. He has a chronic deep vein thrombosis of the right leg for which he has been treated with anticoagulants. PLAN: Our plan at present is to treat his kidney stones, and eventually he will require some evaluation of his symptoms of the right iliac problem, but there is no need for any emergency intervention at present. Mauricio Rincon Jr., MD
[2017-09-19 07:55] LABS: HEMOGLOBIN 15.3 g/dL (12.0-18.0); MEAN CELL VOLUME 91.9 fL (80.0-94.0); MEAN CORPUSCULAR HGB CONC 34.8 g/dL (33.0-37.0); MEAN PLATELET VOLUME 6.9 fL (7.2-11.7); RBC 4.8 Mil/uL (4.40-5.90); WHITE BLOOD COUNT 6.2 K/uL (4.8-10.8)
[2017-09-19 08:17] LABS: ALB/GLOB RATIO 1.3 (1.0-2.1); ALBUMIN 3.2 g/dL (3.5-5.0); ALT/SGPT 44 U/L (21-72); AST/SGOT 28 U/L (17-59); BLOOD UREA NITROGEN 24 mg/dL (9-20); GFR AFRICAN-AMERICAN > 60; GFR NON-AFRICAN AMERICAN > 60
--- NOTE | 2017-09-19 08:23 | CP.PCM.PN ---
Subjective - Date & Time of Evaluation Date of Evaluation: 09/19/17 Time of Evaluation: 08:21 - Subjective Subjective: REVIEWED CT WITH dR Turner CW CHRONIC OCCLUSIVE DISEASE NOT DISSECTION. no Rx planned at present Objective - Vital Signs/Intake and Output Vital Signs (last 24 hours): Temp Pulse Resp BP Pulse Ox 97.7 F 63 20 118/79 92 L 09/19/17 07:49 09/19/17 07:49 09/19/17 07:49 09/19/17 07:49 09/19/17 07:49 Intake and Output: 09/19/17 09/19/17 06:59 18:59 Intake Total 656 Balance 656 - Medications Medications: Current Medications Famotidine (Pepcid) 20 mg PO BID [facility] Fluoxetine HCl (Prozac) 60 mg PO DAILY [facility] Dextrose/Sodium Chloride (Dextrose 5%/0.45% Ns 1000 Ml) 1,000 mls @ 82 mls/hr IV [id number] [facility] Last Admin: 09/18/17 19:42 Dose: 82 mls/hr Ketorolac Tromethamine (Toradol) 30 mg IVP Q6 PRN PRN Reason: Pain, moderate (4-7) Last Admin: 09/18/17 21:18 Dose: 30 mg Lamotrigine (Lamictal) 100 mg PO DAILY [facility] Lamotrigine (Lamictal) 75 mg PO DAILY [facility] Lisinopril (Zestril) 2.5 mg PO DAILY [facility] Metoprolol Succinate (Toprol Xl) 50 mg PO DAILY [facility] Mirtazapine (Remeron) 7.5 mg PO HS [facility] Last Admin: 09/18/17 23:00 Dose: 7.5 mg Quetiapine Fumarate (Seroquel) 25 mg PO HS [facility] Last Admin: 09/18/17 22:22 Dose: 25 mg Risperidone (Risperdal Tab) 1 mg PO HS [facility] Last Admin: 09/18/17 22:22 Dose: 1 mg Rosuvastatin Calcium (Crestor) 20 mg PO HS [facility] Last Admin: 09/18/17 22:22 Dose: 20 mg - Labs Labs: 09/19/17 07:41 09/19/17 07:41
[2017-09-19] MEDS: Metoprolol Succinate 50 mg XL Tab PO SCH (10:28)
[2017-09-19] MEDS: Dextrose 5%/0.45% NS 1,000 ML IV SCH (10:28)
--- NOTE | 2017-09-19 11:52 | CP.PCM.PN ---
Subjective - Date & Time of Evaluation Date of Evaluation: 09/19/17 Time of Evaluation: 11:35 - Subjective Subjective: Patient looks comfortable lying down on bed, no further abdominal pain-?renal colic Consult and follow up noted and appreciated Aortic dissection is chronic and no further intervention planned Patient denies any chest pain or shortness of breath at this time Labs noted. K is low. will supplement Objective - Vital Signs/Intake and Output Vital Signs (last 24 hours): Temp Pulse Resp BP Pulse Ox 97.7 F 63 20 118/79 92 L 09/19/17 07:49 09/19/17 07:49 09/19/17 07:49 09/19/17 07:49 09/19/17 07:49 Intake and Output: 09/19/17 09/19/17 06:59 18:59 Intake Total 656 Balance 656 - Medications Medications: Current Medications Famotidine (Pepcid) 20 mg PO BID [facility] Last Admin: 09/19/17 10:28 Dose: 20 mg Fluoxetine HCl (Prozac) 60 mg PO DAILY [facility] Last Admin: 09/19/17 10:32 Dose: 60 mg Dextrose/Sodium Chloride (Dextrose 5%/0.45% Ns 1000 Ml) 1,000 mls @ 82 mls/hr IV .[id number] [facility] Last Admin: 09/19/17 10:28 Dose: 82 mls/hr Ketorolac Tromethamine (Toradol) 30 mg IVP Q6 PRN PRN Reason: Pain, moderate (4-7) Last Admin: 09/18/17 21:18 Dose: 30 mg Lamotrigine (Lamictal) 100 mg PO DAILY [facility] Last Admin: 09/19/17 10:31 Dose: 100 mg Lamotrigine (Lamictal) 75 mg PO DAILY [facility] Last Admin: 09/19/17 10:31 Dose: 75 mg Lisinopril (Zestril) 2.5 mg PO DAILY [facility] Last Admin: 09/19/17 10:29 Dose: 2.5 mg Metoprolol Succinate (Toprol Xl) 50 mg PO DAILY [facility] Last Admin: 09/19/17 10:28 Dose: 50 mg Mirtazapine (Remeron) 7.5 mg PO HS [facility] Last Admin: 09/18/17 23:00 Dose: 7.5 mg Quetiapine Fumarate (Seroquel) 25 mg PO [facility] Last Admin: 09/18/17 22:22 Dose: 25 mg Risperidone (Risperdal Tab) 1 mg PO [facility] Last Admin: 09/18/17 22:22 Dose: 1 mg Rosuvastatin Calcium (Crestor) 20 mg PO [facility] Last Admin: 09/18/17 22:22 Dose: 20 mg - Labs Labs: 09/19/17 07:41 09/19/17 07:41 - Constitutional Appears: No Acute Distress - Eye Exam Eye Exam: Normal appearance - ENT Exam ENT Exam: Mucous Membranes Moist - Neck Exam Neck Exam: Normal Inspection - Respiratory Exam Respiratory Exam: Clear to Ausculation Bilateral - Cardiovascular Exam Cardiovascular Exam: REGULAR RHYTHM, +S1, +S2 - GI/Abdominal Exam GI & Abdominal Exam: Soft, Normal Bowel Sounds - Extremities Exam Extremities Exam: Pedal Edema Assessment and Plan (1) Dissection of aorta, abdominal Assessment & Plan: No further plans at this time. Dissection is chronic. Status: Chronic (2) Ureterolithiasis Assessment & Plan: Urology consultation requested. Status: Acute (3) DVT (deep venous thrombosis) Assessment & Plan: Anticoagulation is off at this time in view of current other conditions which may need intervention. Status: Chronic (4) Ischemic cardiomyopathy Assessment & Plan: stable on current medication. Status: Chronic (5) History of bipolar disorder Assessment & Plan: stable on meds Status: Chronic (6) Chronic radicular pain of lower back Assessment & Plan: controled. No complaints. Status: Chronic
--- NOTE | 2017-09-19 16:59 | CP.PCM.PN ---
Subjective - Date & Time of Evaluation Date of Evaluation: 09/19/17 Time of Evaluation: 16:57 - Subjective Subjective: Discussed with dr trujillo, will procede with Cysto and stenting tomorrow to relieve obstruction due to Rujht 8mm upj stone. Christian Objective - Vital Signs/Intake and Output Vital Signs (last 24 hours): Temp Pulse Resp BP Pulse Ox 98.7 F 58 L 20 105/71 95 09/19/17 15:26 09/19/17 16:45 09/19/17 15:26 09/19/17 15:26 09/19/17 15:26 Intake and Output: 09/19/17 09/19/17 06:59 18:59 Intake Total 656 Balance 656 - Medications Medications: Current Medications Famotidine (Pepcid) 20 mg PO BID [facility] Last Admin: 09/19/17 10:28 Dose: 20 mg Fluoxetine HCl (Prozac) 60 mg PO DAILY [facility] Last Admin: 09/19/17 10:32 Dose: 60 mg Dextrose/Sodium Chloride (Dextrose 5%/0.45% Ns 1000 Ml) 1,000 mls @ 82 mls/hr IV .[id number] [facility] Last Admin: 09/19/17 10:28 Dose: 82 mls/hr Ketorolac Tromethamine (Toradol) 30 mg IVP Q6 PRN PRN Reason: Pain, moderate (4-7) Last Admin: 09/18/17 21:18 Dose: 30 mg Lamotrigine (Lamictal) 100 mg PO DAILY [facility] Last Admin: 09/19/17 10:31 Dose: 100 mg Lamotrigine (Lamictal) 75 mg PO DAILY [facility] Last Admin: 09/19/17 10:31 Dose: 75 mg Lisinopril (Zestril) 2.5 mg PO DAILY [facility] Last Admin: 09/19/17 10:29 Dose: 2.5 mg Metoprolol Succinate (Toprol Xl) 50 mg PO DAILY [facility] Last Admin: 09/19/17 10:28 Dose: 50 mg Mirtazapine (Remeron) 7.5 mg PO HS [facility] Last Admin: 09/18/17 23:00 Dose: 7.5 mg Quetiapine Fumarate (Seroquel) 25 mg PO HS [facility] Last Admin: 09/18/17 22:22 Dose: 25 mg Risperidone (Risperdal Tab) 1 mg PO HS [facility] Last Admin: 09/18/17 22:22 Dose: 1 mg Rosuvastatin Calcium (Crestor) 20 mg PO [facility] Last Admin: 09/18/17 22:22 Dose: 20 mg - Labs Labs: 09/19/17 07:41 09/19/17 07:41
[2017-09-20] MEDS ORDERED: Dextrose 5%/0.45% NS 1,000 ML IV SCH (00:44)
[2017-09-20] MEDS: Potassium Chl 40 mEq in D5-1/2 1,000 ML IV SCH ×2 (00:55→22:48)
[2017-09-20 07:44] LABS: PROTHROMBIN TIME 11.7 SECONDS (9.7-12.2)
[2017-09-20 08:12] LABS: BLOOD UREA NITROGEN 19 mg/dL (9-20); CALCIUM 7.8 mg/dl (8.6-10.4); GFR AFRICAN-AMERICAN > 60; GFR NON-AFRICAN AMERICAN > 60
[2017-09-20] MEDS: Metoprolol Succinate 50 mg XL Tab PO SCH (11:05)
[2017-09-20] MEDS ORDERED: Midazolam 2 MG/2 ML VIAL ONE (17:14)
[2017-09-20] MEDS ORDERED: Lactated Ringer's 1,000 ML IV ONE ×2 (17:15→17:40)
[2017-09-20] MEDS ORDERED: Ciprofloxacin 400mg/200ml D5W 0 MG/0 ML BAG IVPB ONE (17:17)
[2017-09-20] MEDS ORDERED: Gentamicin 80 mg in 0.9% NS 160 MG/200 ML BAG IVPB ONE (17:17)
[2017-09-20] MEDS ORDERED: Iohexol 240 (50 ml) ONE (17:17)
[2017-09-20] MEDS ORDERED: Lidocaine 2% Jelly (Uro-Jet) ONE (17:17)
[2017-09-20] MEDS ORDERED: HYDROmorphone 0.5 mg/0.5 ml ISec IVP PRN (17:31)
--- NOTE | 2017-09-20 17:37 | PCM.SURG1 ---
Surgeon's Initial Post Op Note - Surgeon's Notes Surgeon: Christian Edge Trimmer: GUY Type of Anesthesia: General Mask Anesthesia Administered By: staff Pre-Operative Diagnosis: R hydro secondary to R upj calculi Operative Findings: same Post-Operative Diagnosis: same Operation Performed: Cysto insertion of stent Specimen/Specimens Removed: na Estimated Blood Loss: EBL {In ML}: 0 Blood Products Given: N/A Drains Used: No Drains Post-Op Condition: Good Date of Surgery/Procedure: 09/20/17 Time of Surgery/Procedure: 17:37
--- NOTE | 2017-09-20 19:15 | CP.PCM.PN ---
Subjective - Date & Time of Evaluation Date of Evaluation: 09/20/17 Time of Evaluation: 19:00 - Subjective Subjective: Patient had cystoscopy and insertion of ureteral stent, R Patient tolerated the procedure well. Complains of some pains post-op No further abdominal pain, no nausea, no vomiting no chest pain or shortness of breath. Hypokalemia corrected. Mild dehydration corrected with cautious hydration Objective - Vital Signs/Intake and Output Vital Signs (last 24 hours): Temp Pulse Resp BP Pulse Ox 97.8 F 53 L 11 L 99/63 L 96 09/20/17 18:25 09/20/17 18:25 09/20/17 18:25 09/20/17 18:25 09/20/17 18:25 - Medications Medications: Current Medications Famotidine (Pepcid) 20 mg PO BID [facility] Last Admin: 09/20/17 11:05 Dose: 20 mg Fluoxetine HCl (Prozac) 60 mg PO DAILY [facility] Last Admin: 09/20/17 11:05 Dose: 60 mg Hydromorphone HCl (Dilaudid) 0.5 mg IVP Q15M PRN PRN Reason: Pain, severe (8-10) Stop: 09/20/17 19:31 Potassium Chloride/Dextrose/Sod Cl (Potassium Chl 40 Meq In D5-1/2ns) 1,000 mls @ 50 mls/hr IV .Q20H [facility] Last Admin: 09/20/17 00:55 Dose: 50 mls/hr Ketorolac Tromethamine (Toradol) 30 mg IVP Q6 PRN PRN Reason: Pain, moderate (4-7) Last Admin: 09/18/17 21:18 Dose: 30 mg Lamotrigine (Lamictal) 100 mg PO DAILY [facility] Last Admin: 09/20/17 11:04 Dose: 100 mg Lamotrigine (Lamictal) 75 mg PO DAILY [facility] Last Admin: 09/20/17 11:04 Dose: 75 mg Lisinopril (Zestril) 2.5 mg PO DAILY [facility] Last Admin: 09/20/17 11:04 Dose: 2.5 mg Metoprolol Succinate (Toprol Xl) 50 mg PO DAILY [facility] Last Admin: 09/20/17 11:05 Dose: 50 mg Mirtazapine (Remeron) 7.5 mg PO HS [facility] Last Admin: 09/19/17 21:02 Dose: 7.5 mg Morphine Sulfate (Morphine) 1 mg IVP Q10M PRN PRN Reason: Pain, moderate (4-7) Stop: 09/20/17 19:35 Ondansetron HCl (Zofran Inj) 4 mg IVP ONCE PRN PRN Reason: Nausea/Vomiting Stop: 09/20/17 19:35 Quetiapine Fumarate (Seroquel) 25 mg PO [facility] Last Admin: 09/19/17 21:02 Dose: 25 mg Risperidone (Risperdal Tab) 1 mg PO [facility] Last Admin: 09/19/17 21:02 Dose: 1 mg Rosuvastatin Calcium (Crestor) 20 mg PO [facility] Last Admin: 09/19/17 21:02 Dose: 20 mg - Labs Labs: 09/19/17 07:41 09/20/17 07:18 PT 11.7 SECONDS (9.7-12.2) 09/20/17 07:18 INR 1.0 09/20/17 07:18 APTT 26 SECONDS (21-34) 09/20/17 07:18 - Constitutional Appears: No Acute Distress - Head Exam Head Exam: NORMAL INSPECTION - Eye Exam Eye Exam: PERRL - ENT Exam ENT Exam: Normal Exam - Respiratory Exam Respiratory Exam: Clear to Ausculation Bilateral, NORMAL BREATHING PATTERN - Cardiovascular Exam Cardiovascular Exam: REGULAR RHYTHM, +S1, +S2 - GI/Abdominal Exam GI & Abdominal Exam: Soft, Normal Bowel Sounds - Rectal Exam Rectal Exam: NORMAL INSPECTION - Extremities Exam Extremities Exam: Full ROM, Normal Inspection Assessment and Plan (1) Dissection of aorta, abdominal Assessment & Plan: Discussed with Dr. Rincon. Aortic findings old and probably more of atherosclerotic occlusive disease and no further intervention planned t this time. Status: Chronic (2) Ureterolithiasis Assessment & Plan: Patient had cystoscopy and insertion of ureteral stent. Patient tolerated the procedure well. He will be discharged and followed outpatient by urologist. Further treatment plans regarding the kidney stones as per urologist. Status: Acute (3) DVT (deep venous thrombosis) Assessment & Plan: asymptomatic at this time. To resume Eliquis tomorrow. Status: Chronic (4) Ischemic cardiomyopathy Assessment & Plan: Stable on current meds. Continue same Status: Chronic (5) History of bipolar disorder Status: Chronic (6) Chronic radicular pain of lower back Assessment & Plan: Stable. No complaints. Status: Chronic (7) Hypokalemia Assessment & Plan: K supplement given and most recent K level is back to normal Status: Acute (8) Dehydration, mild Assessment & Plan: Cautious hydration given in view of patient's history of CHF. BUN now corrected D/c IVF. Status: Acute
[2017-09-21 00:28] VITALS: RESP 20
[2017-09-21] MEDS: Potassium Chl 40 mEq in D5-1/2 1,000 ML IV SCH (06:45)
[2017-09-21 08:43] VITALS: BP 143/89; PULSE 53; TEMP 97.4; O2SAT 96
--- NOTE | 2017-09-21 09:00 | RAD ---
PROCEDURE: HISTORY: Right kidney stone COMPARISON: None TECHNIQUE: Total fluoroscopic time utilized during the procedure: 1.8 seconds. Total dose 0.23670 mGy cm squared FINDINGS: Submitted images from the current procedure: 1 Please refer to the physician's notes performing the procedure. IMPRESSION: Less than 1 hour fluoroscopic time utilized during performance of the procedure
--- NOTE | 2017-09-21 09:09 | CP.PCM.DIS ---
Provider - Provider Date of Admission: 09/18/17 14:55 Attending physician: Linn Harrison MD Primary care physician: Olivia Harrison Consults: Leroy Rincon; Alexi Gonzales Time Spent in preparation of Discharge (in minutes): 40 Diagnosis - Discharge Diagnosis (1) Dissection of aorta, abdominal Status: Ruled-out Priority: Low (2) Ureterolithiasis Status: Chronic Priority: Medium (3) DVT (deep venous thrombosis) Status: Chronic Priority: Medium (4) Ischemic cardiomyopathy Status: Chronic Priority: Medium (5) History of bipolar disorder Status: Chronic Priority: Low (6) Chronic radicular pain of lower back Status: Chronic Priority: Medium (7) Hypokalemia Status: Resolved (8) Dehydration, mild Status: Resolved Hospital Course - Lab Results Lab Results: Micro Results 09/18/17 08:00 Urine Urine Culture - Final No Growth (<1,000 CFU/ML) Most Recent Lab Values WBC 6.2 K/uL (4.8-10.8) D 09/19/17 07:41 RBC 4.80 Mil/uL (4.40-5.90) 09/19/17 07:41 Hgb 15.3 g/dL (12.0-18.0) 09/19/17 07:41 Hct 44.2 % (35.0-51.0) 09/19/17 07:41 MCV 91.9 fL (80.0-94.0) 09/19/17 07:41 MCH 32.0 pg (27.0-31.0) H 09/19/17 07:41 MCHC 34.8 g/dL (33.0-37.0) 09/19/17 07:41 RDW 14.0 % (11.5-14.5) 09/19/17 07:41 Plt Count 193 K/uL (130-400) 09/19/17 07:41 MPV 6.9 fL (7.2-11.7) L 09/19/17 07:41 Neut % (Auto) 83.9 % (50.0-75.0) H 09/18/17 09:57 Lymph % (Auto) 10.1 % (20.0-40.0) L 09/18/17 09:57 Brooks % (Auto) 5.2 % (0.0-10.0) 09/18/17 09:57 Eos % (Auto) 0.3 % (0.0-4.0) 09/18/17 09:57 Baso % (Auto) 0.5 % (0.0-2.0) 09/18/17 09:57 Neut # 11.4 K/uL (1.8-7.0) H 09/18/17 09:57 Lymph # 1.4 K/uL (1.0-4.3) 09/18/17 09:57 Brooks # 0.7 K/uL (0.0-0.8) 09/18/17 09:57 Eos # 0.0 K/uL (0.0-0.7) 09/18/17 09:57 Baso # 0.1 K/uL (0.0-0.2) 09/18/17 09:57 PT 11.7 SECONDS (9.7-12.2) 09/20/17 07:18 INR 1.0 09/20/17 07:18 APTT 26 SECONDS (21-34) 09/20/17 07:18 Sodium 139 mmol/L (132-148) 09/20/17 07:18 Potassium 4.2 mmol/L (3.6-5.2) 09/20/17 07:18 Chloride 104 mmol/L (98-107) 09/20/17 07:18 Carbon Dioxide 33 mmol/L (22-30) H 09/20/17 07:18 Anion Gap 7 (10-20) L 09/20/17 07:18 BUN 19 mg/dL (9-20) 09/20/17 07:18 Creatinine 0.9 mg/dL (0.8-1.5) 09/20/17 07:18 Est GFR ( Amer) > 60 09/20/17 07:18 Est GFR (Non-Af Amer) > 60 09/20/17 07:18 Random Glucose 98 mg/dL (75-110) 09/20/17 07:18 Calcium 7.8 mg/dl (8.6-10.4) L 09/20/17 07:18 Total Bilirubin 0.7 mg/dL (0.2-1.3) 09/19/17 07:41 AST 28 U/L (17-59) 09/19/17 07:41 ALT 44 U/L (21-72) 09/19/17 07:41 Alkaline Phosphatase 74 U/L (38-126) 09/19/17 07:41 Total Protein 5.6 g/dL (6.3-8.3) L 09/19/17 07:41 Albumin 3.2 g/dL (3.5-5.0) L D 09/19/17 07:41 Globulin 2.4 gm/dL (2.2-3.9) 09/19/17 07:41 Albumin/Globulin Ratio 1.3 (1.0-2.1) 09/19/17 07:41 Lipase 62 U/L (23-300) 09/18/17 09:57 Urine Color Yellow (YELLOW) 09/18/17 12:39 Urine Clarity Hazy (Clear) 09/18/17 12:39 Urine pH 6.0 (5.0-8.0) 09/18/17 12:39 Ur Specific [place] 1.025 (1.003-1.030) 09/18/17 12:39 Urine Protein 1+ mg/dL (NEGATIVE) H 09/18/17 12:39 Urine Glucose (UA) Normal mg/dL (Normal) 09/18/17 12:39 Urine Ketones Negative mg/dL (NEGATIVE) 09/18/17 12:39 Urine Blood 3+ (NEGATIVE) H 09/18/17 12:39 Urine Nitrate Negative (NEGATIVE) 09/18/17 12:39 Urine Bilirubin Negative (NEGATIVE) 09/18/17 12:39 Urine Urobilinogen 2.0 mg/dL (0.2-1.0) 09/18/17 12:39 Ur Leukocyte Esterase Neg [place]/uL (Negative) 09/18/17 12:39 Urine WBC (Auto) 5 /hpf (0-5) 09/18/17 12:39 Urine RBC (Auto) 99 /hpf (0-3) H 09/18/17 12:39 Ur Squamous Epith Cells 1 /hpf (0-5) 09/18/17 12:39 Calcium Oxalate Crystal Occ /hpf (<OCC) H 09/18/17 12:39 - Hospital Course Hospital Course: This is a 56 y/o male who was admitted because of severe abdominal pain going down to the lower abdomen and Right lower extremity. He was found to have hydronephrosis, R with multiple stones. CT Scan of the abdomen and pelvis also incidentally showed a probable infrarenal aortic dissection and hence he was admitted for further evaluation and management. Urology and vascular consultations were requested. Further review of the CT Scan byt he vascular surgeon showed more of chronic occlusive disease rather an an aortic dissection and no further work-up was requested. After Urology evaluation, patient went for cystoscopy and ureteral stent placement. He tolerated the procedure well. Patient has no further abdominal pain or renal colic that he complained of on admission and hence he was discharged to be followed up outpatient. Appointments were set up with the patient. Discharge Plan - Follow Up Plan Condition: STABLE Disposition: HOME/ ROUTINE Instructions: Heart Failure (DC), Cystoscopy (DC), Heart Healthy Diet (DC), Ureteral Stent Placement (DC), Ureteral Stones (DC) Referrals: Linn Harrison MD [Staff Provider] -
[2017-09-21] MEDS: Metoprolol Succinate 50 mg XL Tab PO SCH (09:32)
--- NOTE | 2017-09-21 17:17 | PCM.HF ---
Heart Failure Core Measure - Heart Failure Ejection Fraction: Less Than 40 % NOY Inhibitor Prescribed: Yes Beta-Jose Prescribed: Metoprolol Succinate Angiotensin II Receptor Jose Prescribed: No Contraindication/Reason for not providing: on NOY AnticoagulationTherapy for Atrial Fibrillation/Atrialflutter: Yes Aldosterone Antagonist Prescribed: No Contraindication/Reason for not providing: risk for hyperkalemia Hydralazine Nitrate Prescribed: No Contraindication/Reason for not providing: bp running low Implantable Cardioverter Defibrillator Therapy: No Contraindication/Reason for not providing: pt has pacemaker Cardiac Resynchronization Therapy Prescribed: No Contraindication/Reason for not providing: pt has pacemaker - Follow up Will be discharged to: Home Follow Up Date (must be within 7 days from discharge): 09/25/17 Follow Up Time: 09:00
--- NOTE | 2017-10-10 18:02 | OP ---
PROCEDURE DATE: 09/20/2017 PREOPERATIVE DIAGNOSIS: Right secondary to right ureteropelvic junction calculi. POSTOPERATIVE DIAGNOSIS: Right secondary to right ureteropelvic junction calculi. PROCEDURE: Cystoscopy, insertion of stent. DESCRIPTION OF PROCEDURE: Prior to the procedure, the patient was advised of all the risks and complications and alternative methods of treating right UPJ calculi. The patient elected to proceed with the procedure and accept risks. He was brought into the room, and a time-out was taken according to the rules and regulations of [facility]. He was cystoscoped with #21 Storz panendoscope. The bladder was entered atraumatically. There was no prostatic enlargement. The bladder showed no abnormalities. The right ureteral orifice was localized. It was cannulized with an 0.38 guidewire, was passed above the obstructing stone under fluoroscopic control. A double-J stent was then deployed over the wire. Patient tolerated this very well and was sent to the recovery room in good condition. He is aware that further therapy is necessary. Tab Gonzales MD
--- NOTE | 2017-10-10 20:22 | CARD ---
APPROVED REPORT EKG Measurement Heart [id number] <Conclusion> Sinus bradycardia Otherwise normal ECG
== END 2017-09-21 11:40 | disposition home or self-care (01) | DRG 693 ==
LOC: C.ER 09:15 → C.9E 14:55 → C.6T 21:19
PROVIDERS: ADMIT Internal Medicine Cardiovascular Disease; ATTEND Internal Medicine Cardiovascular Disease
PROC: 0T768DZ Dilation of Right Ureter with Intraluminal Device, Via Natural or Artificial Opening Endoscopic (ICD-10-PCS; principal; 2017-09-20 17:00)
DX: N13.2 Hydronephrosis with renal and ureteral calculous obstruction (principal); I71.02 Dissection of abdominal aorta; I82.501 Chronic embolism and thrombosis of unspecified deep veins of right lower extremity; I11.0 Hypertensive heart disease with heart failure; I50.9 Heart failure, unspecified; E11.9 Type 2 diabetes mellitus without complications; E78.00 Pure hypercholesterolemia, unspecified; E86.0 Dehydration; E87.6 Hypokalemia; F31.9 Bipolar disorder, unspecified; I25.10 Atherosclerotic heart disease of native coronary artery without angina pectoris; I25.2 Old myocardial infarction; I25.5 Ischemic cardiomyopathy; J43.9 Emphysema, unspecified; M54.16 Radiculopathy, lumbar region; Z79.01 Long term (current) use of anticoagulants; F17.210 Nicotine dependence, cigarettes, uncomplicated; Z95.5 Presence of coronary angioplasty implant and graft; Z95.810 Presence of automatic (implantable) cardiac defibrillator; R39.15 Urgency of urination

== ENCOUNTER 2017-10-10 10:57 | Day surgery (SDC) | payer MEDICARE ==
[2017-10-10] MEDS ORDERED: Atropine 0.4 mg/ml Inj (1 mL) ONE (12:28)
[2017-10-10] MEDS ORDERED: Midazolam 2 MG/2 ML VIAL ONE ×2 (12:40→14:02)
[2017-10-10] MEDS ORDERED: Lactated Ringer's 1,000 ML IV ONE ×2 (12:40)
[2017-10-10] MEDS ORDERED: Lidocaine 2% Jelly (Uro-Jet) ONE (13:33)
[2017-10-10] MEDS ORDERED: cefTRIAXone IV 1 gm in Dextros 50 ML IVPB ONE (13:33)
[2017-10-10] MEDS ORDERED: Iohexol 240 (50 ml) ONE (13:33)
[2017-10-10] MEDS ORDERED: Oxycodone/Acetaminophen 5/325 mg Tab PO PRN (13:55)
--- NOTE | 2017-10-10 15:02 | RAD ---
INTRAOPERATIVE FLUOROSCOPY HISTORY: Hematuria. TECHNIQUE/FINDINGS: Fluoroscopic guidance was provided by Radiology department. Please see operative report for full details. Seven images were provided. Total fluoroscopy time was 20.3 seconds. IMPRESSION: As above
--- NOTE | 2017-10-10 15:16 | RAD ---
HISTORY: HEMATURIA COMPARISON: No prior. FINDINGS: BOWEL: Evaluation limited due to respiratory motion artifact. Right ureteral stent noted. 5 mm mid left renal calculus. No other abnormal intra-abdominal calcifications noted. Please note that the inferior pelvis is not included on this examination. BONES: Normal. OTHER FINDINGS: None. IMPRESSION: 5 mm mid left allred renal calculus. Right ureteral stent noted. Limited examination.
[2017-10-10 15:31] VITALS: TEMP 97.5
[2017-10-10 16:21] VITALS: RESP 16; O2SAT 97
[2017-10-10 16:24] VITALS: BP 108/76; PULSE 62
--- NOTE | 2017-10-11 11:52 | HP ---
URGENT UROLOGY ADMISSION HISTORY AND PHYSICAL HISTORY OF PRESENT ILLNESS: This is a very pleasant 56-year-old gentleman, initially presented here on 09/18/2017 and then on 09/20/2017, he underwent cysto with retrograde and possible stone treatment. He is not actually sure what happened during that time. Either way, he has been complaining of stent pain and at that time, he was initially seen Dr. Tab Gonzales. And then while I was covering for Dr. Gonzales, the patient reached out to me. I spoke to the patient and his a few times and actually saw him subsequently in the office. We were then planning to wait for Dr. Gonzales's return and then the patient informed me that apparently Dr. Gonzales is not in his insurance plan. So, the patient requested frequent followup with him. We have been trying to work out further plans in terms of treatment. In fact, the patient was on Eliquis and we were awaiting till this would be out of his system. We had discussed the timing for further testing and in fact we wanted to bring the patient out to [place], to [facility]. Subsequently, initially the patient was scheduled even last week and then we had to cancel because of the blood thinner, but today we are bringing him as an urgent admission. He says the stent is just killing him every time he voids. He said he can void and sometimes he voids, he is incontinent. He has no control of his urine, so we discussed options. I was trying to wait a little longer, also to await further medical clearance, but after discussing all the options at this point, the patient is being brought in for an urgent treatment we are planning. The patient is just begging to get the stent out. He says he just cannot function because even if he has pain again and obstruction from the stone, he would rather that and then try to get to [facility] to do a shock wave lithotripsy. So, see the plans listed below. PAST MEDICAL AND SURGICAL HISTORY: This is a patient of Dr. Linn Meyers. REVIEW OF SYSTEMS: As listed above, otherwise noncontributory, no weight loss or chest pain. He says he feels very miserable with the stent in place and he has been very uncomfortable. MEDICATIONS: See chart. ALLERGIES: NONE. PHYSICAL EXAMINATION: GENERAL: A well-nourished male, in no apparent distress. VITAL SIGNS: Within normal limits, included in the chart. LUNGS: Clear. ABDOMEN: Overall soft. No flank mass appreciated. GENITOURINARY: Normal phallus without discharge. No testicular mass. RECTAL: 20 to 30 gram prostate. LABORATORY DATA: See chart. CT SCAN: I had a chance to review the CT scan from his initial evaluation. He actually has bilateral stone disease. He has multiple stones (that is significant because the patient also has a prostatic stent and very much discomfort on his right side. He reports of late, the left side has been bothering him somewhat). He is not sure if he is passing stone fragment. He also has the fluoroscopic imaging. There are only two images that I see saved that I have had a chance to review and it looks to be like there is a possible proximal ureteral stone. See the plan listed below with also the addendum listed below. FINAL DIAGNOSES: Urolithiasis, hematuria and severe stent pain and discomfort. ASSESSMENT AND PLAN: He is a very pleasant 56-year-old gentleman, very pleasant about the entire matter. I discussed the options with the patient and with the . We are trying to actually get the patient to [facility]. First, I was trying to get the patient to wait for Dr. Gonzales to come back and since then, the patient has informed me that Dr. Gonzales is not on the insurance program, so he has asked me to take care of him. Then next, we were going to try to bring him to [facility] for further management including possible shockwave lithotripsy. At this point, we are planning for a different plan, we are planning for ureteroscopy and laser lithotripsy. I have arranged both a rigid ureteroscope and also the flexible ureteroscope and I have explained to the patient that while it is more difficult, we are able to do ureteroscopy. See the addendum listed below. I have discussed all this with him at length and the patient says please to leave him without a stent. I explained that if I have him leave without a stent, he may run into renal colic, but he said that at this point he is still uncomfortable. So we are bringing him in urgently and plan is as follows: 1. He will receive antibiotic prophylaxis. 2. He will undergo cystoscopy, ureteroscopy, renoscopy and laser lithotripsy depending on what we find. 3. Risks and benefits discussed with the patient at length and we will plan to proceed. ADDENDUM: Again, as noted above, we will make sure Dr. Linn Meyers has a copy of this as well. We are planning to treat him as an outpatient. I explained to the patient all plans, risks, benefits and alternatives. Today, we did a ureteroscopy. See the separately dictated urology operative note. But I do want to mention that we were able to go into every calyces, very beautiful pictures with fluoroscopic imaging where I outlined the kidneys and I was really in every calyx and I could see lot of stone debris, but I definitely not see an 8-mm stone, which was initially reported and I feel like we had a great look. Perhaps, this was already treated or perhaps, he has passed it, but either way, I do not see it up and down the ureter. We looked carefully, particularly on the way down the ureter, and definitely, I do not see anything that is of the caliber of 8 mm and we repeated fluoroscopic imaging all the way down. Also, I did the contrast and I really looked in and out of every calyx, very nice view with really good vision. See the operative report for further details, but after doing this, I am fairly convinced that he does not have an 8 mm remnant stone. Hopefully, the patient will do okay. In fact, we did not even leave any stent at the patient's request and hopefully, the patient will not have severe symptoms of colic. See the operative report with the addendum I dictated at the end of operative report for further details. Can Carpenter MD
--- NOTE | 2017-10-11 12:34 | OP ---
This is an urgent procedure being scheduled in relative urgency. PREOPERATIVE DIAGNOSES: Urolithiasis, hematuria, 8-mm stone in the right upper ureter, there is bilateral stone disease, hematuria, and severe right stent pain, and voiding dysfunction, urgency, dysuria, incontinence, frequency. POSTOPERATIVE DIAGNOSES: Urolithiasis, hematuria, 8-mm stone in the right upper ureter, there is bilateral stone disease, hematuria, severe right stent pain, voiding dysfunction, urgency, dysuria, incontinence, frequency. Specifically, bilateral stone disease with stone fragments noted, particularly in the right multiple calyces, we noted stone fragments. PROCEDURES PERFORMED: Cystoscopy, removal of right double J-stent, right ureteroscopy, right renoscopy, right retrograde pyelogram. SURGEON: Steve Carpenter M.D. COMPLICATIONS: There were no complications. ESTIMATED BLOOD LOSS: Less than 10 mL. At the termination of the procedure, no stents were left. We actually gave the patient a dose of Toradol (he is off his blood thinner at this point). We sought consult to give 1 dose of Toradol. OPERATIVE FINDINGS: Normal urethra, no strictures. On reviewing it, moderately visually occlusive about 2 to 3 cm. The ureteral orifice is relatively within normal limits. Retrograde pyelogram is also relatively within normal limits. what looks like there is a stone near the stent. Although, I never really found an 8-mm stone, it certainly does not appear to be an 8-mm stone even what was seen. I did observe during the renoscopy multiple little pieces of stones. Multiple pictures were taken and saved. We also did a right retrograde pyelogram and we were able to go in and out of every calyx very nicely. Many fluoroscopic imagings were saved indicating the calyces where we were, but after the termination of the case, I did not see any stones. DESCRIPTION OF PROCEDURE: After obtaining informed consent, the patient was placed on the table. Routine monitors were placed. Time-out was called to confirm the patient, positioning, etc. Antibiotic prophylaxis was used. We had explained the patient risks, benefits, and treatment alternatives. We then introduced the cystoscope via the urethra. The anterior urethra was normal. No strictures. On reviewing it, moderately visually occlusive about 2 to 3 cm. Ureteral orifice was identified and stent was removed. A wire was passed up to the kidney without difficulty. We confirmed our positioning. Although fluoroscopic imaging was obtained, the entire procedure was done with fluoro and also the camera was aiding us. We introduced the ureteroscope up to the ureter, flexible scope, all the way up to the kidney. I would mention now, on the way out, we very carefully looked to see if there was anything in the ureter, I did not see anything. We injected contrast to get outline of the kidney very well. We identified our location before even injecting the contrast as to what may be the stone and I did not see any definite stone even with the fluoroscopic imaging looking very well. We now inspected calyx, by calyx, by calyx, by calyx, one by one, really rotating around and going in and out of every calyx, and then saving fluoroscopic imaging. We inspected very carefully. I noted the presence of a little stone fragment. I took multiple pictures, but there was definitely there nothing to laser for the fear about making things worse. There was nothing more than 1 mm in size. At this point, we removed the ureteroscope under direct vision. I inspected the entire ureter, hoping maybe that there will be some stone especially because we have the report of the 8-mm stone plus we could originally see it. There were some phleboliths with definitely no obvious stone disease. The patient tolerated the procedure well without complications. So as mentioned again, the plan will be options for followup. Can Carpenter MD
== END 2017-10-10 16:24 | disposition home or self-care (01) ==
LOC: C.SDS 10:57
PROVIDERS: ATTEND Urology
DX: N20.2 Calculus of kidney with calculus of ureter (principal); R32 Unspecified urinary incontinence
CPT/HCPCS: 52332; 74018; C1769; J0696; J1580; J1885; J7120; Q9966

== ENCOUNTER 2017-11-06 10:53 | Day surgery (SDC) | payer MEDICARE ==
[2017-11-06 11:18] VITALS: BMI 28.7
[2017-11-06] MEDS ORDERED: Sodium Chloride 0.9% 1,000 ML IV ONE (12:14)
[2017-11-06] MEDS ORDERED: Morphine 4 MG/ML VIAL ONE (12:24)
[2017-11-06 12:27] LABS: BASO # 0.1 K/uL (0.0-0.2); BASO % 0.9 % (0.0-2.0); EOS # 0.1 K/uL (0.0-0.7); EOS % 1.6 % (0.0-4.0); LYMPH # 1.7 K/uL (1.0-4.3); LYMPH % 19.3 % (20.0-40.0); MEAN CORPUSCULAR HGB CONC 34.5 g/dL (33.0-37.0); MEAN PLATELET VOLUME 7.5 fL (7.2-11.7); MONO # 0.9 K/uL (0.0-0.8); MONO % 10.6 % (0.0-10.0); NEUT # 6.1 K/uL (1.8-7.0); NEUT % 67.6 % (50.0-75.0); RBC 4.99 Mil/uL (4.40-5.90)
--- NOTE | 2017-11-06 12:44 | C.PDOC ---
History Of Present Illness 56 y/o male with history of kidney stones c/o right sided flank pain. Pt notes his pain started in September, he was diagnosed with kidney stones and had stent put in. Pain persists, usually on the right side. Denies hematuria, fever, abdominal pain, testicular pain, penile discharge, n/v or any other complaints at this time. Time Seen by Provider: 11/06/17 11:32 Chief Complaint (Nursing): Male Genitourinary History Per: Patient History/Exam Limitations: no limitations Onset/Duration Of Symptoms: Days Current Symptoms Are (Timing): Still Present Quality Of Discomfort: "Pain" Past Medical History Reviewed: Historical Data, Nursing Documentation, Vital Signs Vital Signs: Last Vital Signs Temp 98.0 F 11/06/17 12:38 Pulse 78 11/06/17 12:38 Resp 18 11/06/17 12:38 BP 138/82 11/06/17 12:38 Pulse Ox 96 11/06/17 13:03 - Medical History PMH: Bipolar Disorder, Cardia Arrhythmia, CHF, Deep Vein Thrombosis (left leg), Emphysema, HTN, Hypercholesterolemia, Kidney Stones, Peripheral Edema, Chronic Kidney Disease Surgical History: Coronary Stent - [facility] Procedures DILATION OF RIGHT URETER WITH INTRALUMINAL DEVICE, ENDO (09/18/17) Family History: States: No Known Family Hx - Social History Hx Alcohol Use: Yes (social) Hx Substance Use: No - Immunization History Hx Tetanus Toxoid Vaccination: Yes Hx Influenza Vaccination: Yes Hx Pneumococcal Vaccination: Yes Review Of Systems Constitutional: Negative for: Fever, Chills Gastrointestinal: Positive for: Other (Flank pain). Negative for: Nausea, Vomiting Genitourinary: Negative for: Dysuria, Hematuria Skin: Negative for: Rash Physical Exam - Physical Exam Appears: Non-toxic, No Acute Distress Skin: Warm, Dry Head: Atraumatic, Normacephalic Eye(s): bilateral: Normal Inspection, EOMI Nose: Normal Oral Mucosa: Moist Neck: Normal ROM, Supple Chest: Symmetrical Cardiovascular: Rhythm Regular Respiratory: Normal Breath Sounds, No Accessory Muscle Use, No Rales, No Rhonchi , No Wheezing Gastrointestinal/Abdominal: Soft, No Tenderness, No Guarding, No Rebound Back: No CVA Tenderness Extremity: Normal ROM, Capillary Refill (<2 seconds) Neurological/Psych: Oriented x3 ED Course And Treatment - Laboratory Results Result Diagrams: 11/06/17 12:22 11/06/17 13:37 O2 Sat by Pulse Oximetry: 96 (RA) Pulse Ox Interpretation: Normal Progress Note: Case d/w Dr. Carpenter instructed for admisison to OR for Cystoscopy, Patient to be NPO Disposition - Disposition Disposition: HOSPITALIZED Disposition Time: 12:25 Condition: STABLE - Clinical Impression Clinical Impression: Ureterolithiasis, Renal colic - PA / [employer]LECT[employer]IC[employer] INSPECTOR / Resident Statement MD/DO has reviewed & agrees with the documentation as recorded. - Scribe Statement The provider has reviewed the documentation as recorded by the Rosalieibcesar Ryan All medical record entries made by the Parish were at my direction and personally dictated by me. I have reviewed the chart and agree that the record accurately reflects my personal performance of the history, physical exam, medical decision making, and the department course for this patient. I have also personally directed, reviewed, and agree with the discharge instructions and disposition.
[2017-11-06 13:59] LABS: ALB/GLOB RATIO 1.2 (1.0-2.1); ALBUMIN 3.9 g/dL (3.5-5.0); ALT/SGPT 34 U/L (21-72); AST/SGOT 27 U/L (17-59); BLOOD UREA NITROGEN 14 mg/dL (9-20); CALCIUM 8.7 mg/dl (8.6-10.4); GFR AFRICAN-AMERICAN > 60; GFR NON-AFRICAN AMERICAN > 60
[2017-11-06] MEDS ORDERED: HYDROmorphone 0.5 mg/0.5 ml ISec IVP PRN (15:39)
[2017-11-06] MEDS ORDERED: Etomidate 20 mg/10ml Inj IV ONE ×2 (17:01→17:03)
[2017-11-06] MEDS ORDERED: Midazolam 2 MG/2 ML VIAL ONE (17:01)
[2017-11-06] MEDS ORDERED: Iohexol 240 (50 ml) ONE (17:11)
[2017-11-06] MEDS ORDERED: Phenylephrine 10 mg/ml Inj ONE (17:25)
[2017-11-06] MEDS ORDERED: ePHEDrine 50 mg/ml Inj ONE (17:25)
[2017-11-06 20:53] VITALS: BP 121/81; PULSE 68; RESP 17; TEMP 98; O2SAT 96
--- NOTE | 2017-11-07 08:47 | RAD ---
PROCEDURE: HISTORY: As Above COMPARISON: None TECHNIQUE: Total fluoroscopic time utilized during the procedure: 56.5 seconds. Total dose 1.14 mGy cm squared FINDINGS: Submitted images from the current procedure: 6 Please refer to the physician's notes performing the procedure. IMPRESSION: Less than 1 hour fluoroscopic time utilized during performance of the procedure
--- NOTE | 2017-12-11 07:46 | OP ---
PROCEDURE DATE: 11/06/2017 PREOPERATIVE DIAGNOSIS: Urolithiasis, hematuria, hydronephrosis, and intermittent flank pain. POSTOPERATIVE DIAGNOSIS: Urolithiasis, hematuria, hydronephrosis and intermittent flank pain. PROCEDURE: Cystoscopy, with right retrograde pyelogram, and insertion of right double-J stent. There were no complications. BLOOD LOSS: Less than 10 mL. DRAINS: Double J-stent. INDICATION: See history and physical for further the details. A very pleasant gentleman who is here for the above procedure. He has stone disease. They actually had brought him to [facility] because he had so many vague complaints of abdominal pain and chest pain and medical issues and a whole slew of things, but he does have intermittent pain. He has even had cardiac workup and cardiac evaluation. His ejection fraction is noted, all this is in the records here. Accept as a relative emergency even though it is a risk. It is a risk to proceed, I explained to the patient. We brought him from the [facility] here today because he is having ongoing pain. We explained risks, benefits and alternatives to the patient and he is here now for the above procedure. FINDINGS: The urology operative findings: Normal anterior urethra, no strictures on viewing it, visually occlusive about 3 cm. The patient has obstructing stone, hydronephrosis. At the termination of the procedure, we were able to put a double J-stent. See the plans and the addendum at the end. The patient will require a followup. PROCEDURE IN DETAIL: After obtaining informed consent, the patient was placed on the table. Routine monitors were placed. Time-out was called. We confirmed the patient and positioning. Back Sizer films were performed. Films from the radiologist. Cystoscope via the urethra. Anterior urethra normal. No strictures on viewing it, visually occlusive about 3 cm. . Right retrograde pyelogram was performed, wire passed the kidney with some difficulty, thought to be fairly impacted stone. Passed a double J-stent and deployed. The bladder was emptied. Cystoscope removed. The patient tolerated without complications. See addendum at the end. Patient will have further followup and will need treatment for the stones but we will get it do all here in this hospital and not bring him back up to the [facility]. There were concerns on their part, again he had multiple medical issues. But he is not having any chest pain and the like. So furthers plan will follow. Can Carpenter MD Ravi Russell
== END 2017-11-06 19:10 | disposition home or self-care (01) ==
LOC: C.ER 10:53 → C.SDS 12:21
PROVIDERS: ATTEND Urology
DX: N13.2 Hydronephrosis with renal and ureteral calculous obstruction (principal); Z87.442 Personal history of urinary calculi; Z86.718 Personal history of other venous thrombosis and embolism; N18.9 Chronic kidney disease, unspecified; I50.9 Heart failure, unspecified; I13.0 Hypertensive heart and chronic kidney disease with heart failure and stage 1 through stage 4 chronic kidney disease, or unspecified chronic kidney disease; E78.00 Pure hypercholesterolemia, unspecified; F31.9 Bipolar disorder, unspecified; Z95.5 Presence of coronary angioplasty implant and graft; I49.9 Cardiac arrhythmia, unspecified; R31.9 Hematuria, unspecified; I25.5 Ischemic cardiomyopathy; Z95.810 Presence of automatic (implantable) cardiac defibrillator; J44.9 Chronic obstructive pulmonary disease, unspecified; I25.10 Atherosclerotic heart disease of native coronary artery without angina pectoris; I25.2 Old myocardial infarction
CPT/HCPCS: 36415; 52332; 76000; 80053; 85025; 96374; 99285; C1758; C1769; C2617; J0696; J1170; J1580; J2270; J7040

== ENCOUNTER 2017-11-13 12:16 | Day surgery (SDC) | payer MEDICARE ==
[2017-11-13] MEDS ORDERED: Oxycodone/Acetaminophen 5/325 mg Tab PO PRN (14:52)
[2017-11-13] MEDS ORDERED: Midazolam 2 MG/2 ML VIAL ONE (15:00)
[2017-11-13] MEDS ORDERED: cefTRIAXone 1 gm 1 GM/100 ML BAG IVPB ONE (15:19)
[2017-11-13] MEDS ORDERED: Lidocaine 2% Jelly (Uro-Jet) ONE (15:19)
[2017-11-13] MEDS ORDERED: Iohexol 240 (50 ml) ONE (15:19)
[2017-11-13] MEDS ORDERED: Lactated Ringer's 1,000 ML IV ONE (15:20)
[2017-11-13] MEDS ORDERED: HYDROmorphone 0.5 mg/0.5 ml ISec IVP PRN (16:16)
[2017-11-13 17:00] VITALS: O2SAT 97
[2017-11-13 17:11] VITALS: BP 125/89; PULSE 83; RESP 19; TEMP 97.4
--- NOTE | 2017-11-14 15:04 | RAD ---
HISTORY: RT KIDNEY STONE COMPARISON: 10/10/2017. FINDINGS: BOWEL: Normal. No obstruction. No free air. BONES: Normal. OTHER FINDINGS: The double-J stent on the right is now uncoiled proximally. The partially core loop not resides in the upper pole collecting system. Two small calculi lower pole region identified. None larger than 6 mm. IMPRESSION: Sub cm renal calculi lower pole right kidney. Partially quite ill double-J stent on the right.
--- NOTE | 2017-11-14 15:19 | RAD ---
PROCEDURE: Fluoroscopy up to 1 hr. HISTORY: RT KIDNEY STONE COMPARISON: None TECHNIQUE: Standard protocol for this study/examination. FINDINGS: Submitted images from the current procedure: 5.0. Total fluoroscopic time (continuous mode) utilized during the procedure: 8.4 seconds. Total exam DLP: (mGy): 2.67 IMPRESSION: Less than 1 hr fluoroscopic time utilized during performance of the procedure.
--- NOTE | 2017-12-11 10:18 | OP ---
PROCEDURE DATE: 11/13/2017 PREOPERATIVE DIAGNOSES: Urolithiasis, hematuria, intermittent right flank pain, right renal colic, and hydronephrosis. POSTOPERATIVE DIAGNOSES: Urolithiasis, hematuria, intermittent right flank pain, right renal colic, and hydronephrosis. PROCEDURES: Cystoscopy, a right retrograde pyelogram, right ureteroscopy, and removal of JJ stent. There were no complications. SURGEON: Can Carpenter MD. INDICATIONS: See history and physical for further details. A very pleasant gentleman who has had back and forth thick renal colic and stone disease. We discussed various options with the patient and his who also tried treating the [facility]. See many previously dictated notes on the patient including most recently on 11/06/2017. I want to mention the findings. Normal anterior urethra, no strictures on reviewing and visually occlusive prostate. The other finding is that from the kidney to the bladder there is no residual stone. The patient does have residual stones up in the kidney (we will have to discuss how to treat that through the end and even at the end). DESCRIPTION OF PROCEDURE: After obtaining the informed consent, the patient placed on the table. Routine monitor was placed. Time off was called and to confirm the patient and positioning. Antibiotic prophylaxis. Again, see the previously dictated notes, previously related to stones. The patient has had multiple stone treatments. He has some residual stones up in his kidney. He has bilateral stone disease, but for now, we will focus in between the kidney and the bladder. Cystoscope via the urethra, the old stent is identified. The right-sided stent is removed, wire is passed up to the kidney. We now went adjacent to the stent. We brought the scope all the way up to the kidney. There is no left over stone disease. There is some debris floating but it is well really tiny debris. We also shot a retrograde pyelogram outlining the kidneys, etc. No further abnormalities are detected. The patient tolerated the procedure well without apparent complication. The bladder was emptied and cystoscope removed. The patient tolerated the procedure without complication. ADDENDUM We will discuss with the patient opportunity to treat this stone. Further plans will follow. Can Carpenter MD
== END 2017-11-13 19:07 | disposition home or self-care (01) ==
LOC: C.SDS 12:16
PROVIDERS: ATTEND Urology
DX: N13.2 Hydronephrosis with renal and ureteral calculous obstruction (principal); R31.9 Hematuria, unspecified; Z95.810 Presence of automatic (implantable) cardiac defibrillator; F17.200 Nicotine dependence, unspecified, uncomplicated; J44.9 Chronic obstructive pulmonary disease, unspecified; I25.10 Atherosclerotic heart disease of native coronary artery without angina pectoris; Z95.5 Presence of coronary angioplasty implant and graft; I11.0 Hypertensive heart disease with heart failure; I50.9 Heart failure, unspecified; E78.5 Hyperlipidemia, unspecified; I25.2 Old myocardial infarction; I25.5 Ischemic cardiomyopathy
CPT/HCPCS: 52310; 74018; C1758; C1769; C2617; J0696; J1170; J7120; Q9966